=== PATIENT | male | born 1975 | race Caucasian/White ===

== ENCOUNTER 2018-03-08 18:02 | Emergency (ER) | payer OTHER, SELFPAY ==
[2018-03-08 18:03] VITALS: BP 135/83; PULSE 100; RESP 18; TEMP 36.6; O2SAT 99; BMI 28.8
[2018-03-08] MEDS: Diphth,Pertuss(Acell),Tet Vac 0.5 ML Vial IM (18:49)
--- NOTE | 2018-03-08 19:53 | ED.DCSUM_ITS ---
- ER Visit Summary Date of Service: 03/08/18 Chief Complaint: Laceration History of Present Illness: The patient is a 42 M who goes to [facility]. He reports that he suffered a laceration to his right leg while dismantling an above ground pool. He reports his pain is 1 out of 10 severity. He last tetanus shot was more than 10 years ago. Physical Examination: Vitals: Stable. Afebrile. General: Well-nourished and well-developed. Head: Normocephalic atraumatic. Neck: Supple, no lymphadenopathy. No JVD. Nontender. Cardiovascular: Regular rate and rhythm. No murmurs. Respiratory: No respiratory distress. Clear to auscultation bilaterally. Abdominal: Soft, nontender, nondistended, normal bowel sounds. No guarding, rebound, or peritoneal signs. Back: Nontender. Extremities: 6 cm laceration to the anterior surface of his right leg. This does extend to subcutaneous tissue. He is neurovascular intact distal to this. There is no foreign material present.. Skin: Normal color, no rash. Neurologic: Alert and oriented ?3. Cranial nerves II through XII are intact. Normal strength and sensation. Psych: Normal affect. Emergency Department Course and Treatment: Patient refused pain medications. He had his wound repaired. He tolerated it well. His tetanus was updated. Treatment Plan: He will be discharged instructions to follow-up his primary care physician in 10-14 days for suture removal. Return to the emergency department for any worsening symptoms. Disposition: To home in improved and stable condition. Impression: 1. Laceration right leg, 6 cm, repaired Procedure note: Wound was cleansed with chlorhexidine soap. Anesthetized with 1% lidocaine without epinephrine. Copiously irrigated with normal saline. Wound was explored there is no foreign material present. It was closed with 6 simple interrupted 4- 0 ethilon sutures. The patient tolerated it well. This note was generated with [employer] dictation software. It may contain incorrect words, spelling, and punctuation that were not noted in review of the chart prior to signing ED Disposition - Plan for ED Patient: Disposition: Home or Assisted Living Chief Complaint: Laceration Instructions: ED Laceration Ext Sutr Stap Tape Referrals: Doctor,Your [STAFF PHYSICIAN] - 10-14 Days suture removal
[2018-03-08 20:13] VITALS: PULSE 90; RESP 16
== END 2018-03-08 20:14 | disposition home or self-care (01) ==
LOC: ED 19:17
PROVIDERS: Emergency Provider Emergency Medicine
DX: S81.811A Laceration without foreign body, right lower leg, initial encounter (principal); W45.8XXA Other foreign body or object entering through skin, initial encounter; Y93.89 Activity, other specified; Y92.9 Unspecified place or not applicable; Y99.9 Unspecified external cause status; Z23 Encounter for immunization; Z79.899 Other long term (current) drug therapy
CPT/HCPCS: 12002; 90715; 99284

== ENCOUNTER → 2018-04-10 08:08 | Outpatient (CLI) | payer OTHER, SELFPAY ==
[2018-04-10 08:25] LABS: Bacteria 0 SEEN /hpf (None Seen); Squamous Epithelial Cells - UA 0 SEEN /hpf (0-5)
[2018-04-10 08:30] LABS: Color, Urine Yellow (Yellow); Glucose, Dipstick Normal (Normal); Ketone-Dipstick Negative (Negative); Leukocyte Esterase-Dipstick Negative /ul (Negative); Nitrite-Dipstick Negative (Negative); Occult Blood-Urine Negative /ul (Negative); Protein-Dipstick Negative (Negative); Urine Bilirubin Dipstick Negative (Negative); Urine Clarity Clear (Clear); Urine Urobilinogen 1 mg/dl (Normal)
[2018-04-10 08:31] LABS: Absolute Lymphocyte Count 1.69 X10^3/ul (0.83-4.51); Absolute Neutrophil Count 2.4 X10^3/uL (2.0-7.7); Basophil# 0.03 X10^3/uL; Basophil% 0.6 % (0-1); Eosinophil# 0.34 X10^3/uL; Eosinophils% 6.9 % (0-5); Hematocrit 44.7 % (40-54); Hemoglobin 15.2 g/dl (13.0-16.5); Lymphocyte # 1.69 X10^3/ul (4.0); Lymphocyte % 34.4 % (19-41); Mean Corpuscular Hgb 28.6 pg (27.0-32.0); Mean Platelet Vol. 10.2 fl (6.2-12.0); Monocyte# 0.43 X10^3/uL; Monocyte% 8.8 % (0-10); Neutrophil # 2.41 X10^3/uL (2.7-7.7); Neutrophil % 49.1 % (47-70); Platelet Count 245 K/mm3 (150-450); RBC Distribution Width CV 13.3 % (11.6-14.6); RBC Distribution Width SD 41.1 fl (35.1-43.9); Red Blood Count 5.32 M/mm3 (4.6-6.2); White Blood Count 4.9 K/mm3 (4.4-11.0)
[2018-04-10 08:34] LABS: POSITIVE COUNT NO; POSITIVE DIFFERENTIAL NO; POSITIVE MORPHOLOGY NO
[2018-04-10 08:52] LABS: ALB/GLOB Ratio 1.2 RATIO (0.9-2.4); AST(SGOT) 22 U/L (15-37); Alanine Aminotransfer ALT/SGPT 37 U/L (16-61); Albumin, Serum 3.9 g/dL (3.2-5.0); Alkaline Phosphatase 58 U/L (45-117); Anion Gap 8 (5-15); BUN 16 mg/dL (7-18); BUN/Creat Ratio 18.9 RATIO (10-20); Calcium,Total 8.6 mg/dL (8.5-10.1); Chloride 105 mmol/L (98-107); Cholesterol 188 mg/dL (200); Creatinine, Serum 0.85 mg/dL (0.70-1.30); EST Glomerular Filtration Rate 104 mL/min (>60); Est Glom Filt Rate - Afr Amer 126 mL/min (>60); Globulin 3.2 g/dL (2.2-4.2); Glucose 80 mg/dL (74-106); High Density Lipoprotein 41 mg/dL; PSA,Total - Annual Screen 0.48 ng/mL (0.00-4.00); Potassium 3.8 mmol/L (3.5-5.1); Protein, Total 7.1 g/dL (6.4-8.2); Sodium Level 143 mmol/L (136-145); Thyroid Stim Hormone (TSH) 1.21 uIU/mL (0.358-3.74); Triglycerides 122 mg/dL; Very Low Density Lipoprotein 24 mg/dL (5-40)
[2018-04-10 08:53] LABS: Mucous, Urine 3+ /hpf (<or=2+)
[2018-04-10 08:54] LABS: Red Blood Cells-Urine 0-5 SEEN /hpf (0-5); White Blood Cells 0-5 SEEN /hpf (0-5)
[2018-04-10 10:34] LABS: Vitamin D,25 Hydroxy 36.2 ng/mL (29.95-100.01)
== END ==
DX: Z00.00 Encounter for general adult medical examination without abnormal findings (principal); Z12.5 Encounter for screening for malignant neoplasm of prostate; E55.9 Vitamin D deficiency, unspecified; R53.83 Other fatigue
CPT/HCPCS: 36415; 80053; 80061; 81001; 82306; 84153; 84443; 85025; G0103

== ENCOUNTER → 2019-08-11 08:06 | Outpatient (CLI) | payer OTHER, SELFPAY ==
[2019-08-11 08:15] LABS: Absolute Lymphocyte Count 1.86 X10^3/uL (0.83-4.51); Absolute Neutrophil Count 3.3 X10^3/uL (2.0-7.7); Basophil# 0.04 X10^3/uL; Basophil% 0.7 % (0-1); Eosinophil# 0.22 X10^3/uL; Eosinophils% 3.7 % (0-5); Hematocrit 45.9 % (40-54); Hemoglobin 15.5 g/dL (13.0-16.5); Lymphocyte # 1.86 X10^3/ul (4.0); Lymphocyte % 31.3 % (19-41); Mean Corp Hgb Conc 33.8 g/dL (32-36); Mean Corpuscular Hgb 29.1 pg (27.0-32.0); Mean Corpuscular Volume 86.1 fL (80-94); Mean Platelet Vol. 9.6 fl (6.2-12.0); Monocyte# 0.55 X10^3/uL; Monocyte% 9.2 % (0-10); NRBC Flagged by Analyzer 0 % (0-5); Neutrophil # 3.25 X10^3/uL (2.7-7.7); Neutrophil % 54.6 % (47-70); Platelet Count 269 K/mm3 (150-450); RBC Distribution Width CV 12.9 % (11.6-14.6); RBC Distribution Width SD 40.7 fl (35.1-43.9); Red Blood Count 5.33 M/mm3 (4.6-6.2)
[2019-08-11 08:45] LABS: ALB/GLOB Ratio 1.1 RATIO (0.9-2.4); AST(SGOT) 20 U/L (15-37); Alanine Aminotransfer ALT/SGPT 47 U/L (16-61); Albumin, Serum 3.9 g/dL (3.2-5.0); Alkaline Phosphatase 75 U/L (45-117); Anion Gap 5 (5-15); BUN 13 mg/dL (7-18); BUN/Creat Ratio 14.1 RATIO (10-20); Calcium,Total 8.8 mg/dL (8.5-10.1); Chloride 106 mmol/L (98-107); Cholesterol 209 mg/dL (200); Creatinine, Serum 0.92 mg/dL (0.70-1.30); EST Glomerular Filtration Rate 94 mL/min (>60); Est Glom Filt Rate - Afr Amer 114 mL/min (>60); Globulin 3.6 g/dL (2.2-4.2); Glucose 83 mg/dL (74-106); High Density Lipoprotein 40 mg/dL; PSA,Total - Annual Screen 0.44 ng/mL (0.00-4.00); Potassium 3.7 mmol/L (3.5-5.1); Protein, Total 7.5 g/dL (6.4-8.2); Sodium Level 140 mmol/L (136-145); Triglycerides 191 mg/dL; Very Low Density Lipoprotein 38 mg/dL (5-40)
[2019-08-26 07:58] LABS: Color, Urine Yellow (Yellow); Glucose, Dipstick Normal (Normal); Ketone-Dipstick 5 mg/dl (Negative); Leukocyte Esterase-Dipstick 25 /ul (Negative); Nitrite-Dipstick Negative (Negative); Occult Blood-Urine Negative /ul (Negative); Protein-Dipstick Negative (Negative); Urine Bilirubin Dipstick Negative (Negative); Urine Clarity Clear (Clear); Urine Urobilinogen 1 mg/dl (Normal)
[2019-08-26 09:07] LABS: Vitamin D,25 Hydroxy 31.1 ng/mL (29.95-100.01)
== END ==
DX: Z00.00 Encounter for general adult medical examination without abnormal findings (principal)
CPT/HCPCS: 80053; 80061; 81002; 82306; 84153; 85025; G0103

== ENCOUNTER → 2020-12-02 07:00 | Outpatient (CLI) | payer OTHER, SELFPAY ==
[2020-12-04 15:15] LABS: ALB/GLOB Ratio 1.2 RATIO (0.9-2.4); AST(SGOT) 19 U/L (15-37); Alanine Aminotransfer ALT/SGPT 40 U/L (16-61); Albumin, Serum 3.9 g/dL (3.2-5.0); Alkaline Phosphatase 69 U/L (45-117); BUN 22 mg/dL (7-18); BUN/Creat Ratio 23.2 RATIO (10-20); Calcium,Total 8.8 mg/dL (8.5-10.1); Cholesterol 206 mg/dL (200); Creatinine, Serum 0.95 mg/dL (0.70-1.30); EST Glomerular Filtration Rate 90 mL/min (>60); Est Glom Filt Rate - Afr Amer 109 mL/min (>60); Globulin 3.3 g/dL (2.2-4.2); Glucose 78 mg/dL (74-106); Protein, Total 7.2 g/dL (6.4-8.2)
[2020-12-04 15:16] LABS: Anion Gap 5 (5-15); Chloride 107 mmol/L (98-107); High Density Lipoprotein 38 mg/dL; Potassium 3.9 mmol/L (3.5-5.1); Sodium Level 140 mmol/L (136-145); Thyroid Stim Hormone (TSH) 1.49 uIU/mL (0.358-3.74); Triglycerides 116 mg/dL; Very Low Density Lipoprotein 23 mg/dL (5-40)
[2020-12-04 15:17] LABS: Hematocrit 46.1 % (40-54); Hemoglobin 15.7 g/dL (13.0-16.5); Mean Corp Hgb Conc 34.1 g/dL (32-36); Mean Corpuscular Hgb 28.3 pg (27.0-32.0); Mean Corpuscular Volume 83.1 fL (80-94); Mean Platelet Vol. 9.8 fl (6.2-12.0); Platelet Count 286 K/mm3 (150-450); RBC Distribution Width CV 12.6 % (11.6-14.6); RBC Distribution Width SD 38.3 fl (35.1-43.9); Red Blood Count 5.55 M/mm3 (4.6-6.2); White Blood Count 4.6 K/mm3 (4.4-11.0)
[2020-12-04 15:18] LABS: Scan Indicated on CBC? Y/N NO
== END ==
DX: Z00.00 Encounter for general adult medical examination without abnormal findings (principal); E78.00 Pure hypercholesterolemia, unspecified; R53.83 Other fatigue; Z12.5 Encounter for screening for malignant neoplasm of prostate
CPT/HCPCS: 80053; 80061; 84443; 85027

== ENCOUNTER → 2020-12-18 15:08 | Outpatient (CLI) | payer OTHER, SELFPAY ==
[2020-12-18 15:14] LABS: Anion Gap 8 (5-15); BUN 20 mg/dL (7-18); BUN/Creat Ratio 19.4 RATIO (10-20); Calcium,Total 9.1 mg/dL (8.5-10.1); Chloride 105 mmol/L (98-107); Creatinine, Serum 1.03 mg/dL (0.70-1.30); EST Glomerular Filtration Rate 82 mL/min (>60); Est Glom Filt Rate - Afr Amer 100 mL/min (>60); Glucose 77 mg/dL (74-106); PSA,Total - Annual Screen 0.55 ng/mL (0.00-4.00); Sodium Level 141 mmol/L (136-145)
== END ==
DX: Z00.00 Encounter for general adult medical examination without abnormal findings (principal); E78.00 Pure hypercholesterolemia, unspecified; R53.83 Other fatigue; Z12.5 Encounter for screening for malignant neoplasm of prostate
CPT/HCPCS: 36415; 80048; 84153; G0103

== ENCOUNTER → 2020-12-25 | Outpatient (CLI) | payer OTHER, SELFPAY | END | disposition home or self-care (01) | LOC: LABSPEC 11:56 | DX: R79.89 Other specified abnormal findings of blood chemistry (principal) | CPT/HCPCS: 82274 ==

== ENCOUNTER → 2022-02-09 | Outpatient (CLI) | payer OTHER, SELFPAY ==
[2022-02-09 07:29] LABS: Hematocrit 45.6 % (40-54); Hemoglobin 15.8 g/dL (13.0-16.5); Mean Corp Hgb Conc 34.6 g/dL (32-36); Mean Corpuscular Hgb 29.2 pg (27.0-32.0); Mean Corpuscular Volume 84.1 fL (80-94); Mean Platelet Vol. 9.7 fl (6.2-12.0); Platelet Count 277 K/mm3 (150-450); RBC Distribution Width CV 12.7 % (11.6-14.6); RBC Distribution Width SD 38.9 fl (35.1-43.9); Red Blood Count 5.42 M/mm3 (4.6-6.2); White Blood Count 5.2 K/mm3 (4.4-11.0)
[2022-02-09 07:59] LABS: ALB/GLOB Ratio 1.2 RATIO (0.9-2.4); AST(SGOT) 23 U/L (15-37); Alanine Aminotransfer ALT/SGPT 46 U/L (16-61); Albumin, Serum 3.8 g/dL (3.2-5.0); Alkaline Phosphatase 85 U/L (45-117); Anion Gap 3 (5-15); BUN 12 mg/dL (7-18); BUN/Creat Ratio 15.3 RATIO (10-20); Calcium,Total 8.6 mg/dL (8.5-10.1); Chloride 107 mmol/L (98-107); Cholesterol 192 mg/dL (200); Creatinine, Serum 0.78 mg/dL (0.70-1.30); EST Glomerular Filtration Rate 112 mL/min (>60); Est Glom Filt Rate - Afr Amer 135 mL/min (>60); Globulin 3.2 g/dL (2.2-4.2); Glucose 99 mg/dL (74-106); High Density Lipoprotein 30 mg/dL; Potassium 4.1 mmol/L (3.5-5.1); Sodium Level 139 mmol/L (136-145); Thyroid Stim Hormone (TSH) 1.25 uIU/mL (0.358-3.74); Triglycerides 206 mg/dL; Very Low Density Lipoprotein 41 mg/dL (5-40)
== END | disposition home or self-care (01) ==
PROVIDERS: Visit Provider Internal Medicine
DX: Z00.00 Encounter for general adult medical examination without abnormal findings (principal); E78.00 Pure hypercholesterolemia, unspecified; R53.83 Other fatigue; R79.89 Other specified abnormal findings of blood chemistry
CPT/HCPCS: 80053; 80061; 84443; 85027

== ENCOUNTER → 2022-11-05 | Outpatient (CLI) | payer OTHER, SELFPAY ==
[2022-11-05 08:33] LABS: Internal QC Validated? YES +Cl - CLEAR BKGD; Monotest Negative (Negative)
== END | disposition home or self-care (01) ==
LOC: LABSPEC 07:29
DX: R59.1 Generalized enlarged lymph nodes (principal)
CPT/HCPCS: 86308

== ENCOUNTER → 2023-04-16 | Outpatient (CLI) | payer OTHER, SELFPAY ==
[2023-04-16 09:17] LABS: Hematocrit 46.1 % (40-54); Hemoglobin 15.9 g/dL (13.0-16.5); Mean Corp Hgb Conc 34.5 g/dL (32-36); Mean Corpuscular Volume 84.1 fL (80-94); Mean Platelet Vol. 10.3 fl (6.2-12.0); Platelet Count 291 K/mm3 (150-450); RBC Distribution Width CV 13.5 % (11.6-14.6); RBC Distribution Width SD 41.9 fl (35.1-43.9); Red Blood Count 5.48 M/mm3 (4.6-6.2); White Blood Count 5.4 K/mm3 (4.4-11.0)
[2023-04-16 09:37] LABS: Vitamin D,25 Hydroxy 77.3 ng/mL
[2023-04-16 09:44] LABS: ALB/GLOB Ratio 1.4 RATIO (0.9-2.4); AST(SGOT) 38 U/L (15-37); Alanine Aminotransfer ALT/SGPT 49 U/L (16-61); Albumin, Serum 4.4 g/dL (3.2-5.0); Alkaline Phosphatase 83 U/L (45-117); Anion Gap 13 (5-15); BUN 24 mg/dL (7-18); BUN/Creat Ratio 23.1 RATIO (10-20); Calcium,Total 9.6 mg/dL (8.5-10.1); Chloride 103 mmol/L (98-107); Cholesterol 172 mg/dL (200); Creatinine, Serum 1.04 mg/dL (0.70-1.30); EST Glomerular Filtration Rate 81 mL/min (>60); Est Glom Filt Rate - Afr Amer 97 mL/min (>60); Globulin 3.1 g/dL (2.2-4.2); Glucose 76 mg/dL (74-106); High Density Lipoprotein 41 mg/dL; PSA,Total - Annual Screen 0.57 ng/mL (0.00-4.00); Potassium 3.4 mmol/L (3.5-5.1); Protein, Total 7.5 g/dL (6.4-8.2); Sodium Level 143 mmol/L (136-145); Thyroid Stim Hormone (TSH) 1.97 uIU/mL (0.358-3.74); Triglycerides 123 mg/dL; Very Low Density Lipoprotein 25 mg/dL (5-40)
== END | disposition home or self-care (01) ==
LOC: LAB 09:09
DX: Z00.00 Encounter for general adult medical examination without abnormal findings (principal); Z12.5 Encounter for screening for malignant neoplasm of prostate; E78.00 Pure hypercholesterolemia, unspecified; E55.9 Vitamin D deficiency, unspecified; R53.83 Other fatigue
CPT/HCPCS: 36415; 80053; 80061; 82306; 84153; 84443; 85027; G0103

== ENCOUNTER 2023-06-09 08:16 | Day surgery (SDC) | payer OTHER, SELFPAY ==
[2023-06-09] MEDS: Lactated Ringers 1,000 ML 15 ML IV (08:40)
[2023-06-09 08:41] VITALS: BP 120/79; PULSE 68; RESP 18; TEMP 36.4; O2SAT 100; BMI 29.3
--- NOTE | 2023-06-09 09:30 | HP.PCM_ITS ---
HPI - General General Date of Admission: 06/09/23 Date of Service: 06/09/23 Chief Complaint: Screening colonoscopy HPI Narrative EDY EPPS, is a 47 M who presents for screening colonoscopy. Never had a colonoscopy in the past. He does not have any abdominal pain. He has no change in bowel habits. He denies any bleeding per rectum. He denies any nausea vomiting or diarrhea. Overall is in fairly good health. [facility], LAT[facility] Medical History Alcohol use Back pain Gastric reflux Leg cramps Non-smoker Home Medications epinephrine 0.3 mg/0.3 mL injection, auto-injector 1 dose IM X1 PRN BEE STINGS 03/08/18 [History Last Taken Unknown] esomeprazole magnesium 40 mg capsule,delayed release (Nexium) 40 mg PO QHS 03/08/18 [History Last Taken Unknown] fexofenadine 60 mg-pseudoephedrine ER 120 mg tablet,ext.release,12 hr (Yanci-D 12 Hour) 1 ea PO DAILY 03/08/18 [History Last Taken Unknown] fluticasone propionate 50 mcg/actuation nasal spray,suspension 2 spray inhalation DAILY 03/08/18 [History Last Taken 06/09/23] montelukast 10 mg tablet 10 mg PO QHS 03/08/18 [History Last Taken Unknown] Bifidobacterium infantis 10.5 mg (10 million cell) chewable tablet (Align) 10.5 mg PO QHS 06/06/23 [History Last Taken Unknown] multivitamin (Daily Multi-Vitamin tablet) 1 tab PO DAILY 06/06/23 [History Last Taken Unknown] vitamin B complex (B Complex-Vitamin B12 tablet) 1 tab PO DAILY 06/06/23 [History Last Taken Unknown] Allergy/AdvReac Type Severity Reaction Status Date / Time bee venom protein (honey bee) Allergy Swelling Verified 06/06/23 09:23 shrimp Allergy Swelling Verified 06/06/23 09:23 Surgical History (Updated 06/06/23 @ 09:32 by Linda Terrell) History of knee surgery Hx of vasectomy Hx of wisdom tooth extraction Social History (Updated 03/04/23 @ 14:46 by Genet Gomez) household members: spouse current occupational status: employed Smoking Status: Never smoker ROS Review of Systems ROS Unobtainable: other Constitutional Constitutional: Denies fatigue, fever(s), poor appetite, weight gain or weight loss ENT HEENT: Denies mouth lesions Cardiovascular Cardiovascular: Denies abdominal bloating, abdominal edema or abdominal pain Respiratory/Chest Respiratory/Chest: Denies change in mental status, change in phlegm color, chest congestion or chest tightness Gastrointestinal Gastrointestinal: Denies belching, bloating, change in bowel habits, change in stool character, chewing difficulty, coffee ground emesis, constipation, cramping, diarrhea, dyspepsia, dysphagia, early satiety, excessive flatus, fecal incontinence, heartburn, hematemesis, hematochezia, hemorrhoids, loose stools, melena, nausea, odynophagia, rectal bleeding, tenesmus, vomiting or weight changes Genitourinary Genitourinary: Denies abdominal discomfort, burning urination or itching Musculoskeletal Musculoskeletal: Reports as per HPI; Denies muscle weakness or myalgias Integumentary Integumentary: Denies jaundice Neurologic Neurologic: Denies lack of coordination or weakness Psychiatric Psychiatric: Denies confusion, depression, memory loss, mood swings, paranoia or suicidal ideation Endocrine Endocrinology: Denies systems reviewed and no addt'l complaints, except as documented Hematologic/Lymphatic Hematologic/Lymphatic: Denies anemia, easy bleeding, easy bruising or lymphadenopathy Allergic/Immunologic Allergic/Immunologic: Denies systems reviewed and no addt'l complaints, except as documented Vital Signs Vital Signs Vital Signs: 06/09/23 08:41 06/09/23 08:41 Temperature 97.5 F L Temperature Source Temporal Pulse Rate 68 Respiratory Rate 18 Respiratory Pattern Normal Blood Pressure 120/79 Blood Pressure Mean 92 Blood Pressure Source Monitor Blood Pressure Position Semi-Fowlers Blood Pressure Location Right Arm Pulse Ox 100 Oxygen Delivery Method Room Air Weight Weight: 204 lb 12.8 oz Body Mass Index (BMI) 29.3 Physical Exam Const alert General Appearance: cooperative Orientation / Consciousness: oriented to person HEENT hearing grossly normal bilaterally Head and Scalp: normal to inspection Face and Sinus: face symmetric Nose: external nose normal Mouth: oral and palatal mucosa normal Eyes conjunctivae normal General Eye: normal appearance of both eyes Neck full ROM General: normal visual inspection Lymph Lymphatic: no lymphadenopathy noted Chest inspection of chest normal and palpation of chest normal Chest: symmetrical chest wall rise Resp normal respiratory effort Effort and Inspection: able to speak in complete sentences Cardio regular rate GI non-distended Percussion: normal to percussion Rectal Exam: deferred Neuro Speech: speech normal Gait (Neuro): normal gait Assessment & Plan Assessment/Plan (1) Encounter for screening for malignant neoplasm of colon: PLAN: He was explained alternatives, risk, benefits including outstanding bleeding, infection, sepsis, perforation, need for emergent surgery . He will have an ASA of 2.
--- NOTE | 2023-06-09 09:30 | COLBX_PTH ---
PATIENT: EDY EPPS LOC: EN U#:[id number] AGE/SX: 47/M ROOM: RE06/09/[address]: Dr. Samm Boateng DO : 1975 BED: DIS: 06/09/2023 SPEC #: [id number] RECD: 06/09/23 11:21 STATUS: JOHNNY PROManju #: [id number] [place]: 06/09/23 09:[address]: Smam Boateng DEPT: SURGICAL PATHOLOGY RECD BY: Kiet Giraldo Tissues: A - Ascending colon B - POLYP Procedures: Surgery Specimen Level IV HEADER OPERATION: Colonoscopy - open access (MAC), polypectomy PRE-OP DIAGNOSIS: Screening TISSUE SUBMITTED: A - Polyp ascending colon, B - Polyp splenic flexure MICROSCOPIC DIAGNOSIS A. Ascending colon polyp, biopsy: Fragments of hyperplastic polyp. B. Colonic polyp at splenic flexure, biopsy: Tubular adenoma. AM:kassandra 06/10/2023 MICROSCOPIC DESCRIPTION Slides are reviewed. GROSS DESCRIPTION A - Received in fixative is one container labeled with the patient's name and designated polyp ascending colon. The specimen consists of multiple irregular fragments of light mazariegos soft tissue that in aggregate measure 1.0 x 0.5 x 0.1 cm. The specimen is totally submitted in one cassette. B - Received in fixative is one container labeled with the patient's name and designated polyp splenic flexure. The specimen consists of one irregular fragment of light mazariegos soft tissue that measures 0.4 x 0.4 x 0.2 cm. The specimen is totally submitted in one cassette. / SJ:rg 06/09/2023 TC:5 CPT: 16344 x2
[2023-06-09 10:01] VITALS: BP 120/79; BP 125/86; PULSE 68; RESP 16; TEMP 36.7; O2SAT 100
--- NOTE | 2023-06-09 10:04 | OP.COLON_ITS ---
Patient Name: Ethan Gregg Procedure Date: 06/09/2023 9:29 AM Date of : 1975 Age: 47 Procedure: Colonoscopy Indications: Screening for colorectal malignant neoplasm Providers: Samm Boateng DO Referring MD: Samm Boateng DO Medicines: Monitored Anesthesia Care Patient Profile: This is a 47 year old male. Refer to note in patient chart for documentation of history and physical. Last Colonoscopy: none. The patient's first colonoscopy is today. Complications: No immediate complications. Procedure: Pre-Anesthesia Assessment: - Prior to the procedure, a History and Physical was performed, and patient medications and allergies were reviewed. The patient is competent. The risks and benefits of the procedure and the sedation options and risks were discussed with the patient. All questions were answered and informed consent was obtained. Patient identification and proposed procedure were verified by the physician. Mental Status Examination: normal. CV Examination: normal. Prophylactic Antibiotics: The patient does not require prophylactic antibiotics. Prior Anticoagulants: The patient has taken no previous anticoagulant or antiplatelet agents. After reviewing the risks and benefits, the patient was deemed in satisfactory condition to undergo the procedure. The anesthesia plan was to use minimal sedation / analgesia (anxiolysis). Immediately prior to administration of medications, the patient was re-assessed for adequacy to receive sedatives. The heart rate, respiratory rate, oxygen saturations, blood pressure, adequacy of pulmonary ventilation, and response to care were monitored throughout the procedure. The physical status of the patient was re-assessed after the procedure. After I obtained informed consent, the scope was passed under direct vision. Throughout the procedure, the patient's blood pressure, pulse, and oxygen saturations were monitored continuously. The Colonoscope was introduced through the anus and advanced to the cecum, identified by appendiceal orifice and ileocecal valve. The colonoscopy was performed without difficulty. The patient tolerated the procedure well. The quality of the bowel preparation was adequate. Scope In: 9:43:14 AM Scope Withdrawal Time 0 hours 9 minutes 30 seconds Scope Out: 9:56:08 AM Total Procedure Duration Time 0 hours 12 minutes 54 seconds Findings: The perianal and digital rectal examinations were normal. Two sessile polyps were found in the splenic flexure and ascending colon. The polyps were 1 to 2 mm in size. These polyps were removed with a hot snare. Resection and retrieval were complete. Verification of patient identification for the specimen was done. Estimated blood loss was minimal. Internal hemorrhoids were found during retroflexion. The hemorrhoids were Grade II (internal hemorrhoids that prolapse but reduce spontaneously). Impression: - Two 1 to 2 mm polyps at the splenic flexure and in the ascending colon, removed with a hot snare. Resected and retrieved. - Internal hemorrhoids. Recommendation: - Repeat colonoscopy in 5 years for surveillance. - Continue present medications. Procedure Code(s): --- Professional --- 35967, Colonoscopy, flexible; with removal of tumor(s), polyp(s), or other lesion(s) by snare technique CPT copyright 2017 [employer]. All rights reserved. The codes documented in this report are preliminary and upon java consultant review may be revised to meet current compliance requirements. Samm Boateng DO 06/09/2023 10:04:08 AM This report has been signed electronically. Number of Addenda: 0 Note Initiated On: 06/09/2023 9:29 AM
[2023-06-09 10:05] VITALS: BP 118/81; BP 120/79; PULSE 69; RESP 16; O2SAT 100
[2023-06-09 10:10] VITALS: BP 117/81; BP 120/79; PULSE 67; RESP 16; O2SAT 99
[2023-06-09 10:17] VITALS: BP 120/79; BP 128/78; PULSE 58; RESP 16; TEMP 36.6; O2SAT 100
[2023-06-09 10:29] VITALS: BP 120/79
== END 2023-06-09 10:30 | disposition home or self-care (01) ==
LOC: EN 08:17 → AC 08:21
PROVIDERS: Referring Provider Internal Medicine Gastroenterology; Visit Provider Internal Medicine Gastroenterology
PROC: 0DJD8ZZ Inspection of Lower Intestinal Tract, Via Natural or Artificial Opening Endoscopic (ICD-10-PCS; CPT 45378; principal; 2023-06-09 09:25)
DX: Z12.11 Encounter for screening for malignant neoplasm of colon (principal); K64.1 Second degree hemorrhoids; D12.3 Benign neoplasm of transverse colon; K21.9 Gastro-esophageal reflux disease without esophagitis; Z79.899 Other long term (current) drug therapy
CPT/HCPCS: 45385; 88305; J7120; J2405

== ENCOUNTER → 2024-04-21 | Outpatient (CLI) | payer OTHER, SELFPAY ==
[2024-04-21 07:35] LABS: Hematocrit 46.3 % (40-54); Hemoglobin 15.1 g/dL (13.0-16.5); Mean Corp Hgb Conc 32.6 g/dL (32-36); Mean Corpuscular Hgb 28.2 pg (27.0-32.0); Mean Corpuscular Volume 86.4 fL (80-94); Mean Platelet Vol. 9.9 fl (6.2-12.0); Platelet Count 282 K/mm3 (150-450); RBC Distribution Width CV 13.5 % (11.6-14.6); RBC Distribution Width SD 42.5 fl (35.1-43.9); Red Blood Count 5.36 M/mm3 (4.6-6.2); White Blood Count 6.2 K/mm3 (4.4-11.0)
[2024-04-21 08:30] LABS: Vitamin D,25 Hydroxy 36.5 ng/mL
[2024-04-21 10:31] LABS: ALB/GLOB Ratio 1.1 RATIO (0.9-2.4); AST(SGOT) 25 U/L (15-37); Alanine Aminotransfer ALT/SGPT 40 U/L (16-61); Albumin, Serum 3.7 g/dL (3.2-5.0); Alkaline Phosphatase 81 U/L (45-117); Anion Gap 5 (5-15); BUN 18 mg/dL (7-18); BUN/Creat Ratio 21.6 RATIO (10-20); Chloride 107 mmol/L (98-107); Cholesterol 234 mg/dL (200); Creatinine, Serum 0.83 mg/dL (0.70-1.30); EST Glomerular Filtration Rate 104 mL/min (>60); Est Glom Filt Rate - Afr Amer 125 mL/min (>60); Globulin 3.3 g/dL (2.2-4.2); Glucose 92 mg/dL (74-106); High Density Lipoprotein 43 mg/dL; PSA,Total- Diagnostic 0.52 ng/mL (0.0-4.0); Potassium 4.2 mmol/L (3.5-5.1); Sodium Level 140 mmol/L (136-145); Triglycerides 163 mg/dL; Very Low Density Lipoprotein 33 mg/dL (5-40)
[2024-04-23 01:28] LABS: Thyroid Stim Hormone (TSH) 1.48 uIU/mL (0.358-3.74)
== END | disposition home or self-care (01) ==
LOC: LABSPEC 07:22
DX: Z00.00 Encounter for general adult medical examination without abnormal findings (principal)
CPT/HCPCS: 80053; 80061; 82306; 84153; 84443; 85027

== ENCOUNTER → 2025-04-28 | Outpatient (CLI) | payer OTHER, SELFPAY ==
--- OUTSIDE RECORDS SUMMARY | 2025-04-28 07:54 | XMS RPT_ITS | CCD ---
Author Organization [facility] Care Team Providers Care Rehanger Name Role Phone Unavailable Primary Care Provider UnavailPRATIBHA Dockery M.D. Attending Unavailable Care Physician, No Primary Primary Care Provider Unavailable Genet Gomez Attending Provider Unavailable Friend, Dr. Quijano Attending Provider [phone] Friend, Dr. Quijano Referring Provider Friend, Dr. Quijano Other Provider Friend, Samm Consulting Unavailable FriendSamm Attending Unavailable FriendSamm Referring Unavailable Care Physician, No Primary Primary Care Unava ilable FriendSamm Referring Unavailable FriendSamm Attending Unavailable TEJINDER, MEET Attending Unavailable Allergies Allergy Classification Reported Allergen(s) Allergy Type Date of Onset Reaction(s) Facility (2 sources) shrimp allergenic extract Drug Allergy 03-04-2023 [facility] (2 sources) bee venom protein (honey bee) Allergy to substance 03-04-2023 [facility] (1 source) Shrimp product Drug allergy (disorder) 06-06-2023 [facility] (1 source) bee venom protein (honey bee) Drug allergy (disorder) 06-06-2023 [facility] Medications Current Medications Medication Drug Class(es) Dates Sig (Normalized) Sig (Original) bifidobacterium infantis 10.5 mg chewable tablet (1 source) Start: 06-06-2023 Bifidobacterium Infantis (Align) 10.5 mg (10 million cell) tablet,chewable Active 10.5 MG PO AT BEDTIME June 06, 2023 12:00am [id number] 0.3 ml EPINEPHrine 1 mg/ml auto-injector (4 sources) alpha-Adrenergic Agonist, beta-Adrenergic Agonist, Catecholamine Start: 03-08-2018 inject 1 dose by intramuscular injection once Epinephrine Active 1 DOSE IM ONE TIME March 08, 2018 12:00am esomeprazole 40 mg delayed release oral capsule (4 sources) Proton Pump Inhibitor Start: 03-08-2018 take 1 capsule by mouth at bedtime Esomeprazole Magnesium (Nexium) 40 capsule Active 40 MG PO AT BEDTIME March 08, 2018 12:00am fexofenadine hydrochloride 60 mg oral tablet (3 sources) Histamine-1 Receptor Antagonist Start: 03-08-2018 take 1 tablet by mouth at bedtime Fexofenadine (Yanci Allergy) 60 MG tablet Active 60 MG PO AT BEDTIME March 08, 2018 12:00am 12 hr fexofenadine hydrochloride 60 mg / pseudoephedrine hydrochloride 120 mg extended release oral tablet (4 sources) alpha-Adrenergic Agonist, Histamine-1 Receptor Antagonist Start: 03-08-2018 take 1 tablet by mouth every twelve hours Fexofenadine-Pseudo ephedrine (Yanci-D 12 Hour Tablet) 1 EACH tablet extended release 12 hr Active 1 EACH PO DAILY March 08, 2018 12:00am Start: 03-08-2018 Fexofenadine-P seudoephedrine (Yanci-D 12 Hour Tablet) 1 EACH Tab.Er.12h Active 1 EACH PO DAILY March 08, 2018 6:05pm fluticasone propionate 0.05 mg/actuat metered dose nasal spray (4 sources) Corticosteroid Start: 03-08-2018 take 1 spray(s) by inhalation once daily Fluticasone Propionate Active 2 SPRAY INHALATION DAILY March 08, 2018 12:00am montelukast 10 mg oral tablet (4 sources) Leukotriene Receptor Antagonist Start: 03-08-2018 take 10 mg by mouth at bedtime Montelukast Active 10 MG PO AT BEDTIME March 08, 2018 12:00am Multivitamin (Daily Multi-Vitamin) tablet (1 source) Start: 06-06-2023 take 1 tablet by mouth once daily Multivitamin (Daily Multi-Vitamin) tablet Active 1 TABLET PO DAILY June 06, 2023 12:00am Vitamin B Complex (B Complex-Vitamin B12) tablet (1 source) Start: 06-06-2023 take 1 tablet by mouth once daily Vitamin B Complex (B Complex-Vitamin B12) tablet Active 1 TABLET PO DAILY June 06, 2023 12:00am Problems Problem Classification Problem Date Documented Da te Episodic/Chronic Other screening for suspected conditions (not mental disorders or infectious disease) (5 sources) Patient encounter status; Translations: [Encounter for screening for malignant neoplasm of colon] Onset: 07-09-2023 03-04-2023 Episodic Unclassified (1 source) TV RANDOM Onset: 08-15-2022 Results Test Name Value Interpretation Reference Range Facility Thyroid Stim Hormone (TSH)on 04-23-2024 TSH 1.48 uIU/mL Normal 0.358-3.74 [facility] Comment on above: Performed By: #### L506.1000, L100.0500, L500.4050, L501.9940, L500.4100, L501.9520 #### [facility] [address], [place], [id number] CBC-Complete Blood Cnt No Di ffon 04-21-2024 Erythrocyte distribution width (RBC) [Ratio] 13.5 % Normal 11.6-14.6 [facility] Comment on above: Performed By: #### L506.1000, L100.0500, L500.4050, L501.9940, L500.4100, L501.9520 #### [facility] [address], [place], [id number] Hematocrit (Bld) [Volume fraction] 46.3 % Normal 40-54 [facility] Comment on above: Performed By: #### L506.1000, L100.0500, L500.4050, L501.9940, L500.4100, L501.9520 #### [facility] [address], [place], [id number] (020 Hemoglobin (Bld) [Mass/Vol] 15.1 g/dL Normal 13.0-16.5 [facility] Comment on above: Performed By: #### L506.1000, L100.0500, L500.4050, L501.9940, L500.4100, L501.9520 #### [facility] [address] [place], [address] MCH (RBC) [Entitic mass] 28.2 pg Normal 27.0-32.0 [facility] Comment on above: Performed By: #### L506.1000, L100.0500, L500.4050, L501.9940, L500.4100, L501.9520 #### [facility] [address] [place], [address] MCHC (RBC) [Mass/Vol] 32.6 g/dL Normal 32-36 [facility] Comment on above: Performed By: #### L506.1000, L100.0500, L500.4050, L501.9940, L500.4100, L501.9520 #### [facility] [address] [place], [address] MCV (RBC) [Entitic vol] 86.4 fL Normal 80-94 [facility] Comment on above: Performed By: #### L506.1000, L100.0500, L500.4050, L501.9940, L500.4100, L501.9520 #### [facility] [address] [place], [address] Platelet mean volume (Bld) [Entitic vol] 9.9 fL Normal 6.2-12.0 [facility] Comment on above: Performed By: #### L506.1000, L100.0500, L500.4050, L501.9940, L500.4100, L501.9520 #### [facility] [address] [place], [address] Platelets (Bld) [#/Vol] 282 10*3/uL Normal 150-450 [facility] Comment on above: Performed By: #### L506.1000, L100.0500, L500.4050, L501.9940, L500.4100, L501.9520 #### [facility] [address] [place], [address] RBC (Bld) [#/Vol] 5.36 10*6/uL Normal 4.6-6.2 [facility] Comment on above: Performed By: #### L506.1000, L100.0500, L500.4050, L501.9940, L500.4100, L501.9520 #### [facility] [address] [place], [address] RDW SD 42.5 fl Normal 35.1-43.9 [facility] Comment on above: Performed By: #### L506.1000, L100.0500, L500.4050, L501.9940, L500.4100, L501.9520 #### [facility] [address] [place], [address] WBC (Bld) [#/Vol] 6.2 10*3/uL Normal 4.4-11.0 [facility] Comment on above: Performed By: #### L506.1000, L100.0500, L500.4050, L501.9940, L500.4100, L501.9520 #### [facility] [address] [place], [address] [facility] Albumin [Mass/Vol] 3.7 g/dL Normal 3.2-5.0 [facility] Comment on above: Performed By: #### L506.1000, L100.0500, L500.4050, L501.9940, L500.4100, L501.9520 #### [facility] [address] [place], [address] Albumin/Globul in [Mass ratio] 1.1 {ratio} Normal 0.9-2.4 [facility] Comment on above: Performed By: #### L506.1000, L100.0500, L500.4050, L501.9940, L500.4100, L501.9520 #### [facility] [address] [place], [address] ALK P 81 U/L Normal 45-117 [facility] Comment on above: Performed By: #### L506.1000, L100.0500, L500.4050, L501.9940, L500.4100, L501.9520 #### [facility] [address] [place], [address] ALT [Catalytic activity/Vol] 40 U/L Normal 16-61 [facility] Comment on above: Performed By: #### L506.1000, L100.0500, L500.4050, L501.9940, L500.4100, L501.9520 #### [facility] [address] [place], [address] AST [Catalytic activity/Vol] 25 U/L Normal 15-37 [facility] Comment on above: Performed By: #### L506.1000, L100.0500, L500.4050, L501.9940, L500.4100, L501.9520 #### [facility] [address] [place], [address] Bilirubin [Mass/Vol] 0.40 mg/dL Normal 0.20-1.00 [facility] Comment on above: Result Comment: For patients on eltrombo pag therapy, use of Dimension Hamlin TBIL is not recommended. Performed By: #### L 506.1000, L100.0500, L500.4050, L501.9940, L500.4100, L501.9520 #### [facility] [address] [place], [address] BUN/CRE 21.6 RATIO High 10-20 [facility] Comment on above: Performed By: #### L506.1000, L100.0500, L500.4050, L501.9940, L500.4100, L501.9520 #### [facility] [address] [place], [address] CA,Total 9.0 mg/dL Normal 8.5-10.1 [facility] Comment on above: Performed By: #### L506.1000, L100.0500, L500.4050, L501.9940, L500.4100, L501.9520 #### [facility] [address] [place], [address] Chloride [Moles/Vol] 107 mmol/L Normal 98-107 [facility] Comment on above: Performed By: #### L506.1000, L100.0500, L500.4050, L501.9940, L500.4100, L501.9520 #### [facility] [address] [place], [address] CO2 [Moles/Vol] 28.0 mmol/L Normal 21.0-32.0 [facility] Comment on above: Performed By: #### L506.1000, L100.0500, L500.4050, L501.9940, L500.4100, L501.9520 #### [facility] [address] [place], [address] Creatinine [Mass/Vol] 0.83 mg/dL Normal 0.70-1.30 [facility] Comment on above: Result Comment: The validity of the calc ulated GFR GFRAA in patients over 70 years has not been determined. Clinical correlation is essential. Performed By: #### L 506.1000, L100.0500, L500.4050, L501.9940, L500.4100, L501.9520 #### [facility] [address] [place], [address] EST GFR - AA 125 mL/min Normal >60 [facility] Comment on above: Result Comment: GFR Viet c Performed By: #### L 506.1000, L100.0500, L500.4050, L501.9940, L500.4100, L501.9520 #### [facility] [address] [place], [address] GAP 5 Normal 5-15 [facility] Comment on above: Performed By: #### L506.1000, L100.0500, L500.4050, L501.9940, L500.4100, L501.9520 #### [facility] [address] [place], [address] GFR/1.73 sq M.predicted among non-blacks MDRD (S/P/Bld) [Vol rate/Area] 104 mL/min/{1.73_m2} Normal >60 [facility] Comment on above: Result Comment: Non- GFR Calc Performed By: #### L 506.1000, L100.0500, L500.4050, L501.9940, L500.4100, L501.9520 #### [facility] [address] [place], [address] Globulin (S) [Mass/Vol] 3.3 g/dL Normal 2.2-4.2 [facility] Comment on above: Performed By: #### L506.1000, L100.0500, L500.4050, L501.9940, L500.4100, L501.9520 #### [facility] [address] [place], [address] Glucose [Mass/Vol] 92 mg/dL Normal 74-106 [facility] Comment on above: Performed By: #### L506.1000, L100.0500, L500.4050, L501.9940, L500.4100, L501.9520 #### [facility] [address] [place], [address] Potassium [Moles/Vol] 4.2 mmol/L Normal 3.5-5.1 [facility] Comment on above: Performed By: #### L506.1000, L100.0500, L500.4050, L501.9940, L500.4100, L501.9520 #### [facility] [address] [place], [address] Sodium [Moles/Vol] 140 mmol/L Normal 136-145 [facility] Comment on above: Performed By: #### L506.1000, L100.0500, L500.4050, L501.9940, L500.4100, L501.9520 #### [facility] [address] [place], [address] T PROT 7.0 g/dL Normal 6.4-8.2 [facility] Comment on above: Performed By: #### L506.1000, L100.0500, L500.4050, L501.9940, L500.4100, L501.9520 #### [facility] [address] [place], [address] Urea nitrogen [Mass/Vol] 18 mg/dL Normal 7-18 [facility] Comment on above: Performed By: #### L506.1000, L100.0500, L500.4050, L501.9940, L500.4100, L501.9520 #### [facility] [address] [place], [address] Lipid Profileon 04-21-2024 Cholesterol [Mass/Vol] 234 mg/dL High 200 [facility] Comment on above: Result Comment: <200 mg/dL Desirable 200-240 mg/dL Borderline >240 mg/dL High Risk Performed By: #### L 506.1000, L100.0500, L500.4050, L501.9940, L500.4100, L501.9520 #### [facility] [address] [place], [address] Cholesterol in HDL [Mass/Vol] 43 mg/dL Normal [facility] Comment on above: Result Comment: The drugs N-Acetylcystei ne and Metamizole may falsely depress this assay. Reference Range HDL <40 mg/dL Low HDL Cholesterol HDL >or= 60 mg/dL High HDL Cholesterol Performed By: #### L 506.1000, L100.0500, L500.4050, L501.9940, L500.4100, L501.9520 #### [facility] [address] [place], [address] Cholesterol in LDL [Mass/Vol] 158 mg/dL High 0-130 [facility] Comment on above: Performed By: #### L506.1000, L100.0500, L500.4050, L501.9940, L500.4100, L501.9520 #### [facility] [address] [place], [address] Cholesterol in VLDL [Mass/Vol] 33 mg/dL Normal 5-40 [facility] Comment on above: Performed By: #### L506.1000, L100.0500, L500.4050, L501.9940, L500.4100, L501.9520 #### [facility] [address] [place], [address] Triglyceride [Mass/Vol] 163 mg/dL Normal [facility] Comment on above: Result Comment: The drugs N-Acetylcystei ne and Metamizole may falsely depress this assay. Serum Triglycerides Reference Interval Normal <150 mg/dL Borderline high 150 - 199 mg/dL High 200 - 499 mg/dL Very High > or = 500 mg/dL Performed By: #### L 506.1000, L100.0500, L500.4050, L501.9940, L500.4100, L501.9520 #### [facility] [address] [place], [address] PSA,Total- Diagnosticon 06-0 -2023 PSA, DIAGNOSTIC 0.52 ng/mL Normal 0.0-4.0 [facility] Comment on above: Result Comment: This test was performed using the TPSA assay method for the [employer] chemistry system. Values obtained with different assay methods cannot be used interchangably. When changing PSA assays in the course of monitoring a patient, additional sequential testing should be carried out to confirm baseline values. Performed By: #### L 506.1000, L100.0500, L500.4050, L501.9940, L500.4100, L501.9520 #### [facility] [address] [place], [address] Vitamin D,25 Hydroxyon 04-21 Vitamin D 25-OH 36.5 ng/mL Normal [facility] Comment on above: Result Comment: Vitamin D 25(OH) Status Range Deficiency <20 ng/mL (50nmol/L) Insufficiency 20 - 30 ng/mL (50 - 75 nmol/L) Sufficiency 30 - 100 ng/mL (75 - 250 nmol/L) Toxicity >100 ng/mL (>250 nmol/L) Performed By: #### L 506.1000, L100.0500, L500.4050, L501.9940, L500.4100, L501.9520 #### [facility] [address] [place], [place], [address] Colonoscopy Reporton 023 Colonoscopy Report [facility] Medical Records Department [address] [place] [address] Colonoscopy Report MR#: [id number] Acct: [id number] Name: EDY EPPS Rep #: [id number] : 1975 47 From: Samm Boateng DO PCP: Status:[facility] [place] Patient Name: Edy Epps Procedure Date: 06/09/2023 9:29 AM Date of : 1975 Age: 47 Procedure: Colonoscopy Indications: Screening for colorectal malignant neoplasm Providers: Samm Boateng DO Referring MD: Samm Boateng DO Medicines: Monitored Anesthesia Care Patient Profile: This is a 47 year old male. Refer to note in patient chart for documentation of history and physical. Last Colonoscopy: none. The patient's first colonoscopy is today. Complications: No immediate complications. Procedure: Pre-Anesthesia Assessment: - Prior to the procedure, a History and Physical was performed, and patient medications and allergies were reviewed. The patient is competent. The risks and benefits of the procedure and the sedation options and risks were discussed with the patient. All questions were answered and informed consent was obtained. Patient identification and proposed procedure were verified by the physician. Mental Status Examination: normal. CV Examination: normal. Prophylactic Antibiotics: The patient does not require prophylactic antibiotics. Prior Anticoagulants: The patient has taken no previous anticoagulant or antiplatelet agents. After reviewing the risks and benefits, the patient was deemed in satisfactory condition to undergo the procedure. The anesthesia plan was to use minimal sedation / analgesia (anxiolysis). Immediately prior to administration of medications, the patient was re-assessed for adequacy to receive sedatives. The heart rate, respiratory rate, oxygen saturations, blood pressure, adequacy of pulmonary ventilation, and response to care were monitored throughout the procedure. The physical status of the patient was re-assessed after the procedure. After I obtained informed consent, the scope was passed under direct vision. Throughout the procedure, the patient's blood pressure, pulse, and oxygen saturations were monitored continuously. The Colonoscope was introduced through the anus and advanced to the cecum, identified by appendiceal orifice and ileocecal valve. The colonoscopy was performed without difficulty. The patient tolerated the procedure well. The quality of the bowel preparation was adequate. Scope In: 9:43:14 AM Scope Withdrawal Time 0 hours 9 minutes 30 seconds Scope Out: 9:56:08 AM Total Procedure Duration Time 0 hours 12 minutes 54 seconds Findings: The perianal and digital rectal examinations were normal. Two sessile polyps were found in the splenic flexure and ascending colon. The polyps were 1 to 2 mm in size. These polyps were removed with a hot snare. Resection and retrieval were complete. Verification of patient identification for the specimen was done. Estimated blood loss was minimal. Internal hemorrhoids were found during retroflexion. The hemorrhoids were Grade II (internal hemorrhoids that prolapse but reduce spontaneously). Impression: - Two 1 to 2 mm polyps at the splenic flexure and in the ascending colon, removed with a hot snare. Resected and retrieved. - Internal hemorrhoids. Recommendation: - Repeat colonoscopy in 5 years for surveillance. - Continue present medications. Procedure Code(s): --- Professional --- 12872, Colonoscopy, flexible; with removal of tumor(s), polyp(s), or other lesion(s) by snare technique CPT copyright 2017 [employer]. All rights reserved. The codes documented in this report are preliminary and upon hand flatwork finisher review may be revised to meet current compliance requirements. Samm Boateng DO 06/09/2023 10:04:08 AM This report has been signed electronically. Number of Addenda: 0 Note Initiated On: 06/09/2023 9:29 AM 06/09/23 1004 Date Samm Boateng DO Cosigner Signature: Date (if indicated) CC: Samm Boateng DO Date Dictated: 06/09/23928 Date Transcribed: Air Table Operator: LUPILLO Signed Normal [facility] Surgery Specimen Level Dat 06-09-2023 Surgery Specimen Level IV Patient Age/Sex Location Account Attending Physician EDY EPPS 47/M EN [id number] Samm Boateng DO Specimen: [id number] Received: 06/09/23 [id number] Spec Type: COLON BX Subm Dr: Samm Boateng DO HEADER OPERATION: Colonoscopy - open access (MAC), polypectomy PRE-OP DIAGNOSIS: Screening TISSUE SUBMITTED: A - Polyp ascending colon, B - Polyp splenic flexure MICROSCOPIC DIAGNOSIS A. Ascending colon polyp, biopsy: Fragments of hyperplastic polyp. B. Colonic polyp at splenic flexure, biopsy: Tubular adenoma. AM:kassandra 06/10/2023 MICROSCOPIC DESCRIPTION Slides are reviewed. GROSS DESCRIPTION A - Received in fixative is one container labeled with the patient's name and designated polyp ascending colon. The specimen consists of multiple irregular fragments of light mazariegos soft tissue that in aggregate measure 1.0 x 0.5 x 0.1 cm. The specimen is totally submitted in one cassette. B - Received in fixative is one container labeled with the patient's name and designated polyp splenic flexure. The specimen consists of one irregular fragment of light mazariegos soft tissue that measures 0.4 x 0.4 x 0.2 cm. The specimen is totally submitted in one cassette. / SJ:kassandra 06/09/2023 TC:5 [facility]: 58753 x2 Patient Age/Sex Location Account Attending Physician EDY EPPS/M EN [id number] Samm Boateng DO Signed (signature on file) Dr. Derrell Shah, DO 06/10/23 1401 Normal [facility] Comment on above: Performed By: #### PSUIV #### [facility] [address] [place], [address] Basophil percentageon 2022 Bilirubin [Mass/Vol] 0.50 mg/dL 0.20-1.00 [facility] Comment on above: For patients on eltrombopag therapy, use of Dimension [place] TBIL is not recommended. Chloride [Moles/Vol] 103 mmol/L 98-107 [facility] Cholesterol [Mass/Vol] 172 mg/dL <200 [facility] Comment on above: <200 mg/dL Desirable 200-240 mg/dL Borde rline >240 mg/dL High Risk Glucose [Mass/Vol] 76 mg/dL 74-106 [facility] Potassium [Moles/Vol] 3.4 mmol/L 3.5-5.1 [facility] Protein [Mass/Vol] 7.5 g/dL 6.4-8.2 [facility] Sodium [Moles/Vol] 143 mmol/L 136-145 [facility] Triglyceride [Mass/Vol] 123 mg/dL <199 [facility] Comment on above: The drugs N-Acetylcysteine and Metamizol e may falsely depress this assay.Serum Triglycerides Reference Interval Normal <150 mg/dL Borderline high 150 - 199 mg/dL High 200 - 499 mg/dL Very High > or = 500 mg/dL WBC (Bld) [#/Vol] 5.4 10*3/uL 4.4-11.0 [facility] Blood erythrocytes count (nu mber/volume)on 04-16-2023 RBC (Bld) [#/Vol] 5.48 10*6/uL 4.6-6.2 [facility] Blood hemoglobin measurement (mass/volume)on 04-16-2023 Hemoglobin (Bld) [Mass/Vol] 15.9 g/dL 13.0-16.5 [facility] Blood platelet mean volumeon 04-16-2023 Platelet mean volume (Bld) [Entitic vol] 10.3 fL 6.2-12.0 [facility] Determination of erythrocyte mean corpuscular volume (MCV)on 04-16-2023 MCV (RBC) [Entitic vol] 84.1 fL 80-94 [facility] Hematocrit Auto (Bld) [Volum e fraction]on 04-16-2023 Hematocrit (Bld) [Volume fraction] 46.1 % 40-54 [facility] - Chemistry and C hemistry - challengeon 04-16-2023 ALP [Catalytic activity/Vol] 83 U/L 45-117 [facility] ALT [Catalytic activity/Vol] 49 U/L 16-61 [facility] CO2 [Moles/Vol] 27.0 mmol/L 21.0-32.0 [facility] Globulin (S) [Mass/Vol] 3.1 g/dL 2.2-4.2 [facility] Urea nitrogen/Creat inine [Mass ratio] 23.1 mg/mg 10-20 [facility] - Hematology and Cell countson 04-16-2023 Erythrocyte distribution width (RBC) [Entitic vol] 41.9 fL 35.1-43.9 [facility] Erythrocyte distribution width (RBC) [Ratio] 13.5 % 11.6-14.6 [facility] MCH (RBC) [Entitic mass] 29.0 pg 27.0-32.0 [facility] MCHC Auto (RBC) [Mass/Vol]on 04-16-2023 MCHC (RBC) [Mass/Vol] 34.5 g/dL 32-36 [facility] No Panel Informationon 04-16 Estimated GFR (MDRD) Amer 97 mL/min >60 [facility] Comment on above: GFR Calc Estimated GFR (MDRD) Non-Af Amer 81 mL/min >60 [facility] Comment on above: Non- GFR Calc Prostate Specific Antigen Screen 0.57 ng/mL 0.00-4.00 [facility] Comment on above: This test was performed using the TPSA a ssay method for the[facility] chemistry system. Values obtained with differentassay methods cannot be used interchangably.When changing PSA assays in the course of monitoring apatient, additional sequential testing should be carriedout to confirm baseline values. Thyroid Stimulating Hormone (TSH) 1.97 uIU/mL 0.358-3.74 [facility] Vitamin D 25-Hydroxy 77.3 ng/mL [facility] Comment on above: Vitamin D 25(OH) Status Range Deficiency <20 ng/mL (50nmol/L) Insufficiency 20 - 30 ng/mL (50 - 75 nmol/L) Sufficiency 30 - 100 ng/mL (75 - 250 nmol/L) Toxicity >100 ng/mL (>250 nmol/L) Platelets bldon 04-16-2023 Platelets (Bld) [#/Vol] 291 10*3/uL 150-450 [facility] Serum or plasma albumin andrew urement (mass/volume)on 04-16-2023 Albumin [Mass/Vol] 4.4 g/dL 3.2-5.0 [facility] Serum or plasma albumin/glob ulin mass ratioon 04-16-2023 Albumin/Globul in [Mass ratio] 1.4 {ratio} 0.9-2.4 [facility] Serum or plasma calcium andrew urement (mass/volume)on 04-16-2023 Calcium [Mass/Vol] 9.6 mg/dL 8.5-10.1 [facility] Serum or plasma cholesterol in HDL measurement (mass/volume)on 04-16-2023 Cholesterol in HDL [Mass/Vol] 41 mg/dL >40 [facility] Comment on above: The drugs N-Acetylcysteine and Metamizol e may falsely depress this assay. Reference Range HDL <40 mg/dL Low HDL Cholesterol HDL >or= 60 mg/dL High HDL Cholesterol Serum or plasma cholesterol in VLDL measurement (mass/volume)on 04-16-2023 Cholesterol in VLDL [Mass/Vol] 25 mg/dL 5-40 [facility] Serum or plasma creatinine m easurement (mass/volume)on 04-16-2023 Creatinine [Mass/Vol] 1.04 mg/dL 0.70-1.30 [facility] Comment on above: The validity of the calculated GFR & GFR AA in patients over 70 years has not been determined. Clinical correlation is essential. Serum or plasma low density lipoprotein (LDL) cholesterol measurement (mass/volume)on 04-16-2023 Cholesterol in LDL [Mass/Vol] 106 mg/dL 0-130 [facility] Serum or plasma urea nitroge n measurement (mass/volume)on 04-16-2023 Urea nitrogen [Mass/Vol] 24 mg/dL 7-18 [facility] Thin prep Papanicolaou smear with manual screeningon 04-16-2023 Thin prep Papanicolaou smear with manual screening 38 U/L 15-37 [facility] Thin prep Papanicolaou smear with manual screening 13 5-15 [facility] Serum heterophile antibody d etectionon 11-05-2022 Heterophile Ab Ql (S) Negative Negative [facility] Work Phone: Basophil percentageon 2021 Bilirubin [Mass/Vol] 0.40 mg/dL 0.20-1.00 [facility] Work Phone: Comment on above: For patients on eltrombopag therapy, use of Dimension [place] TBIL is not recommended. Chloride [Moles/Vol] 107 mmol/L 98-107 [facility] Work Phone: Cholesterol [Mass/Vol] 192 mg/dL <200 [facility] Work Phone: Comment on above: <200 mg/dL Desirable 200-240 mg/dL Borde rline >240 mg/dL High Risk Glucose [Mass/Vol] 99 mg/dL 74-106 [facility] Work Phone: [phone] Potassium [Moles/Vol] 4.1 mmol/L 3.5-5.1 [facility] Work Phone: Protein [Mass/Vol] 7.0 g/dL 6.4-8.2 [facility] Work Phone: [phone] Sodium [Moles/Vol] 139 mmol/L 136-145 [facility] Work Phone: Triglyceride [Mass/Vol] 206 mg/dL [facility] Work Phone: Comment on above: The drugs N-Acetylcysteine and Metamizol e may falsely depress this assay.Serum Triglycerides Reference Interval Normal <150 mg/dL Borderline high 150 - 199 mg/dL High 200 - 499 mg/dL Very High > or = 500 mg/dL WBC (Bld) [#/Vol] 5.2 10*3/uL 4.4-11.0 [facility] Work Phone: Blood erythrocytes count (nu mber/volume)on 02-09-2022 RBC (Bld) [#/Vol] 5.42 10*6/uL 4.6-6.2 [facility] Work Phone: Blood hemoglobin measurement (mass/volume)on 02-09-2022 Hemoglobin (Bld) [Mass/Vol] 15.8 g/dL 13.0-16.5 [facility] Work Phone: Blood platelet mean volumeon 02-09-2022 Platelet mean volume (Bld) [Entitic vol] 9.7 fL 6.2-12.0 [facility] Work Phone: Determination of erythrocyte mean corpuscular volume (MCV)on 02-09-2022 MCV (RBC) [Entitic vol] 84.1 fL 80-94 [facility] Work Phone: Hematocrit Auto (Bld) [Volum e fraction]on 02-09-2022 Hematocrit (Bld) [Volume fraction] 45.6 % 40-54 [facility] Work Phone: Laboratory - Chemistry and C hemistry - challengeon 02-09-2022 ALP [Catalytic activity/Vol] 85 U/L 45-117 [facility] Work Phone: ALT [Catalytic activity/Vol] 46 U/L 16-61 [facility] Work Phone: CO2 [Moles/Vol] 29.0 mmol/L 21.0-32.0 [facility] Work Phone: Globulin (S) [Mass/Vol] 3.2 g/dL 2.2-4.2 [facility] Work Phone: Urea nitrogen/Creat inine [Mass ratio] 15.3 mg/mg 10-20 [facility] Work Phone: Laboratory - Hematology and Cell countson 02-09-2022 Erythrocyte distribution width (RBC) [Entitic vol] 38.9 fL 35.1-43.9 [facility] Work Phone: Erythrocyte distribution width (RBC) [Ratio] 12.7 % 11.6-14.6 [facility] Work Phone: MCH (RBC) [Entitic mass] 29.2 pg 27.0-32.0 [facility] Work Phone: MCHC Auto (RBC) [Mass/Vol]on 02-09-2022 MCHC (RBC) [Mass/Vol] 34.6 g/dL 32-36 [facility] Work Phone: No Panel Informationon 02-09 Estimated GFR (MDRD) Amer 135 mL/min >60 [facility] Work Phone: Comment on above: GFR Calc Estimated GFR (MDRD) Non-Af Amer 112 mL/min >60 [facility] Work Phone: Comment on above: Non- GFR Calc Thyroid Stimulating Hormone (TSH) 1.25 uIU/mL 0.358-3.74 [facility] Work Phone: Platelets bldon 02-09-2022 Platelets (Bld) [#/Vol] 277 10*3/uL 150-450 [facility] Work Phone: Serum or plasma albumin andrew urement (mass/volume)on 02-09-2022 Albumin [Mass/Vol] 3.8 g/dL 3.2-5.0 [facility] Work Phone: Serum or plasma albumin/glob ulin mass ratioon 02-09-2022 Albumin/Globul in [Mass ratio] 1.2 {ratio} 0.9-2.4 [facility] Work Phone: Serum or plasma calcium andrew urement (mass/volume)on 02-09-2022 Calcium [Mass/Vol] 8.6 mg/dL 8.5-10.1 [facility] Work Phone: Serum or plasma cholesterol in HDL measurement (mass/volume)on 02-09-2022 Cholesterol in HDL [Mass/Vol] 30 mg/dL [facility] Work Phone: Comment on above: The drugs N-Acetylcysteine and Metamizol e may falsely depress this assay. Reference Range HDL <40 mg/dL Low HDL Cholesterol HDL >or= 60 mg/dL High HDL Cholesterol Serum or plasma cholesterol in VLDL measurement (mass/volume)on 02-09-2022 Cholesterol in VLDL [Mass/Vol] 41 mg/dL 5-40 [facility] Work Phone: Serum or plasma creatinine m easurement (mass/volume)on 02-09-2022 Creatinine [Mass/Vol] 0.78 mg/dL 0.70-1.30 [facility] Work Phone: Comment on above: The validity of the calculated GFR & GFR AA in patients over 70 years has not been determined. Clinical correlation is essential. Serum or plasma low density lipoprotein (LDL) cholesterol measurement (mass/volume)on 02-09-2022 Cholesterol in LDL [Mass/Vol] 121 mg/dL 0-130 [facility] Work Phone: Serum or plasma urea nitroge n measurement (mass/volume)on 02-09-2022 Urea nitrogen [Mass/Vol] 12 mg/dL 7-18 [facility] Work Phone: Thin prep Papanicolaou smear with manual screeningon 02-09-2022 Thin prep Papanicolaou smear with manual screening 23 U/L 15-37 [facility] Work Phone: Thin prep Papanicolaou smear with manual screening 3 5-15 [facility] Work Phone: [facility] 09-12-2021 [facility] INFLUENZA AG A negative test is p resumptive and it is recommended these results be confirmed by viral culture or an FDA-cleared influenza A and B molecular assay. Negative results do not preclude influenza virus infections and should not be used as the sole basis for treatment or other patient management decisions. If influenza is circulating in the community, a diagnosis should be based on clinical presentation. RESULTS CALLED TO TYESHA ABERNATHY AT 0844 09/06/21 BY JEFFREY STEPHEN. EIA RESULT PRESUMPTIVE NEGATIVE FOR INFLUENZA A AND B. [facility] Comment on above: Order Comment: [place]: [facility] What is the source? NASOPHARYNGEAL [facility]Con 09-06-2021 [facility] REPORT [facility] DATE OF SERVICE: REASON FOR VISIT: Cough, congestion. HISTORY OF PRESENT ILLNESS: This is a 45-year-old male presenting with symptoms of cough, congestion and drainage that started yesterday. He is concerned of influenza. No shortness of breath. No vomiting or diarrhea. There is no change in taste or smell and he has not been exposed to COVID-19. Review of other systems normal. PAST MEDICAL HISTORY, FAMILY HISTORY, SOCIAL HISTORY: Reviewed. ALLERGIES: BEES and SEASONAL ALLERGY. MEDICATIONS: Reviewed. PHYSICAL EXAMINATION: He is awake, alert not in distress. No dyspnea. Temperature 99.2, blood pressure 136/78, pulse 98, respiration 16, pulse oximetry 100% on room air, pain score 4 out of 10. HEENT: Remarkable for mild nasal congestion. Throat not injected. No paranasal sinus tenderness. Chest: Clear to auscultate. Heart: Regular rate and rhythm. DIAGNOSTICS: Rapid flu test was negative. ASSESSMENT: Upper respiratory infection. [facility] PATIENT NAME: EDY EPPS [facility] [address] Jaquez MEDICAL REC #: [id number] [place] [address] [facility] REPORT STATCARE PHYSICIAN PLAN: Clinical findings were discussed with patient in detail. I gave him Tessalon Perles 100 mg every 6 hours as needed, 30 pills with no refill for cough control. I explained to him that I do not see immediate need of antibiotic right now, but if there is no improvement or if symptoms progress in the next 4 to 5 days I have given prescription of amoxicillin 875 mg twice a day for 10 days prescription to keep. If he gets better he need not to fill. He should drink a lot of fluid, Tylenol as needed and follow with his doctor as needed. Patient understands and agreed. Alicia Morin MD /[id number] [facility] File#: [id number] END OF DOCUMENT / CHANGE LOG FOLLOWS Last Edited By Elec. Signed By Alicia Morin MD #PAWPR Alicia Morin MD #PAWPR on 09/18/2021 08:32 ET on 09/18/2021 08:32 ET Revision Number - 2 [facility] PATIENT NAME: SUPRI[facility]EDY [facility]ige [address] [facility] [address] MEDICAL REC #: [id number] [place] [address] [facility] REPORT STATCARE PHYSICIAN Verified/Reviewed by 09/18/21 0832 [facility] PATIENT NAME: EDY EPPS [address] [facility] [address] Jaquez MEDICAL REC #: [id number] [place] [address] [facility] REPORT STATCARE PHYSICIAN Normal [facility] Radha Gilbert 12-03-2019 PROGRESS HNO ID: [id number] Author: Sb Dennis Provider Service: ? Author Type: Physician Type: Progress Notes Filed: 12/03/2019 4:37 PM Note Text: null (CCF:Not available AMW:[id number]) Visit Summary for Edy Epps - Gender: Male - Date of : 1975 ( ) Date: [id number] - Duration: 6 minutes Patient: Edy Epps Provider: Nitin Arroyo Patient Contact Information Address [address] [place] [address]; [place] [address] [phone] Visit Topics Triage Questions Please provide your current address. We need this on file in case of a medical emergency.Answer [] Conversation Transcripts [Notification] Arianna Zheng, Global Staff, will help you prepare for your visit. She is assisting Nitin Arroyo Family Physician.[Arianna Zheng] Lena, and thank you for connecting. While you are waiting for the doctor, are there any questions I can answer for you about our service? Please contact customer service if you have questions about billing, insurance, or technical issues. Visits work best with a stable WiFi connection, so please make sure you are connected before we begin. [Notification] Arianna Zheng has left the room.[Notification] Arianna Zheng has left the room.[Notification] You are connected with Nitin Arroyo Family Physician.[Notification] Edy Epps is located in [place].[Notification] Edy Epps has shared health history... Diagnosis Viral infection, unspecified Value: B34.9 Code: ICD-10-CM Procedures Value: 36913 Code: CPT-4 OFFICE/OUTPATIENT VISIT EST Medications Prescribed Nexium 24HR Frequency : Yanci-D 12 Hour Frequency : Singulair Frequency : Provider Notes The caller confirms they are the patient on the registration, and that they [place] calling from [place] VideoHPI: Onset yesterday of headache to forehead, congestion. Gassy stomach. No nausea, vomiting or diarrhea. No fever. No body aches or chills. Concerned about influenza. Daughter with possible influenza, seen online. PM: NoneMeds: yanci, nexium, singulair (montelukast)NKDANonsmoker Got a flu shot. On video exam the patient appears in no distress. At work. Does not appear weary of toxic. NO cough. No congestion. Assessment: Viral infection, early and mild. Does not appear to be influenza, and minimal benefit from tamiflu in this case if it were. Plan: Recommend flu test if definativ ediagnosis desired. Discussed the normal course of a viral infection. Manage mucus flow and cough with guaifenesin, humidity and hydration. If fever or body ache occur after day 5, if severe or persisting sinus or ear pain, or if symptoms are lasting more than 12 total days, consider antibiotic.Follow up at any time if worsening or if not improving over 48 hours. Discussed the differential diagnosis, risks/benefits for treatment options and when to seek in person care. All questions were addressed. Patient voiced understanding and agreement with plan. 1. If you received a prescription at this visit and you have a question or problem please call [phone] for prescription assistance2. Please print a copy of this note and send it to your regular doctor, or take it to your next visit so it may be included in your medical record3. Please see your primary care provider on an annual basis or more frequently if directed Electronically signed by: Nitin Arroyo( ) Normal [facility] Vital Signs Date Time Vital Sign Value Performing Clinician Moises ott 06-09-2023 10:040 Body temperature 97.9 [degF] No Primary Care Physician [facility] 06-09-2023 10:040 Diastolic blood pressure 78 mm[Hg] No Primary Care Physician [facility] 06-09-2023 10:040 Heart rate 58 /min No Primary Care Physician [facility] 06-09-2023 10:040 Respiratory rate 16 /min No Primary Care Physician [facility] 06-09-2023 10:17-0400 SaO2% (BldA) [Mass fraction] 100 % No Primary Care Physician [facility] 06-09-2023 10:17-0400 Systolic blood pressure 128 mm[Hg] No Primary Care Physician [facility] 06-09-2023 08:41-0400 Body height 177.8 cm No Primary Care Physician [facility] 06-09-2023 08:41-0400 Body mass index (BMI) [Ratio] 29.3 kg/m2 No Primary Care Physician [facility] 06-09-2023 08:41-0400 Body weight 92.89 kg No Primary Care Physician [facility] 03-04-2023 14:49-0400 Body height 177.8 cm No Primary Care Physician [facility] Encounters Encounter Date Encounter Type Care Provider Facility Start: 04-27-2024 Encounter for genera l adult medical examination without abnormal findings STE2 [facility] Start: 04-21-2024 End: 04-21-2024 ambulatory [facility] Facility:[facility] Start: 06-09-2023 ambulatory Samm Friend Facility :[facility] Start: 06-09-2023 Non-patient / Non-visit No Ginger Pruitt Physician [facility] Start: 06-09-2023 End: 06-09-2023 Admission to same day surgery center No Primary Care Physician [facility] Work Phone: Start: 06-09-2023 End: 06-09-2023 ambulatory No Primary Care Physician [facility] Work Phone: Start: 04-16-2023 End: 04-16-2023 ambulatory No Primary Care Physician [facility] Work Phone: Start: 04-16-2023 End: 04-16-2023 Patient encounter procedure No Primary Care Physician [facility] Work Phone: Start: 03-04-2023 Non-patient / Non-visit No Ginger Pruitt Physician [facility] Work Phone: Start: 11-05-2022 End: 11-05-2022 ambulatory [facility] Work Phone: Start: 11-05-2022 End: 11-05-2022 Patient encounter procedure [facility], Specimen Start: 08-15-2022 ambulatory PRATIBHA PATRICIO Facil ity:[facility] Start: 08-15-2022 End: 08-15-2022 Subsequent hospital visit by physician Provider [facility] Comment on above: TV [facility]ANDOM Start: 02-09-2022 End: 02-09-2022 Patient encounter procedure [facility], Specimen Start: 09-15-2021 Patient encounter procedure Deshawn Still PA-C Work Phone: [facility] Start: 09-15-2021 Progress Note Deshawn Gibson-C Work Phone[facility] Start: 09-09-2021 Patient encounter procedure Alicia Morin MD Work Phone: [facility] Start: 09-09-2021 Progress Note Alicia Morin MD Work Phone: [facility] Procedures Date Procedure Procedure Detail Performing Clinician Start: 06-09-2023 Colonoscopy No Primary Care Physician Plan of Treatment Date Care Activity Detail Author Start: 06-09-2023 Patient discharge [facility] Colonoscopy [facility] Immunizations Immunization Date Immunization Notes Care Provider Zahraa mckeon 03-08-2018 tetanus toxoid, redu antonia diphtheria toxoid, and acellular pertussis vaccine, adsorbed [facility] Payers Date Payer Category Payer Self-pay [id number] 2023 Unknown [id number] Unknown [id number] Unknown [id number] Unknown [id number] Social History Date Type Detail Facility Start: 03-08-2018 End: 06-06-2023 Tobacco smoking status NHIS Unknown if ever smoked [facility] Start: 1975 Sex Assigned At Male [facility] Start: 1975 Sex Assigned At Not on file [facility] Goals Date Patient Goal Desired Activity /State Mental Status Date Assessment Result Facility 06-09-2023 Cognitive function Voice/Name [facility] Work Phone: Procedure note 06-09-2023 Note Date & Type Note Facility 06-09-2023 Procedure note [facility] Clinical Note 06-09-2023 Note Date & Type Note Facility 06-09-2023 Note [facility] Medical Records Department [address] [place] [address] History Physical Exam 06/09/23 0930 MR#: [id number] Acct: [id number] Name: EDY EPPS Rep #: [id number] : 1975 47 From: Samm Friend PCP: Status:[facility] Location: [place] [id number] HPI - General General Date of Admission: 06/09/23 Date of Service: 06/09/23 Chief Complaint: Screening colonoscopy HPI Narrative EDY EPPS, is a 47 M who presents for screening colonoscopy. Never had a colonoscopy in the past. He does not have any abdominal pain. He has no change in bowel habits. He denies any bleeding per rectum. He denies any nausea vomiting or diarrhea. Overall is in fairly good health. [facility] Medical History Alcohol use Back pain Gastric reflux Leg cramps Non-smoker Home Medications epinephrine 0.3 mg/0.3 mL injection, auto-injector 1 dose IM X1 PRN BEE STINGS 03/08/18 [History Last Taken Unknown] esomeprazole magnesium 40 mg capsule,delayed release (Nexium) 40 mg PO QHS 03/08/18 [History Last Taken Unknown] fexofenadine 60 mg-pseudoephedrine ER 120 mg tablet,ext.release,12 hr (Yanci-D 12 Hour) 1 ea PO DAILY 03/08/18 [History Last Taken Unknown] fluticasone propionate 50 mcg/actuation nasal spray,suspension 2 spray inhalation DAILY 03/08/18 [History Last Taken 06/09/23] montelukast 10 mg tablet 10 mg PO QHS 03/08/18 [History Last Taken Unknown] Bifidobacterium infantis 10.5 mg (10 million cell) chewable tablet (Align) 10.5 mg PO QHS 06/06/23 [History Last Taken Unknown] multivitamin (Daily Multi-Vitamin tablet) 1 tab PO DAILY 06/06/23 [History Last Taken Unknown] vitamin B complex (B Complex-Vitamin B12 tablet) 1 tab PO DAILY 06/06/23 [History Last Taken Unknown] Allergy/AdvReac Type Severity Reaction Status Date / Time bee venom protein (honey bee) Allergy Swelling Verified 06/06/23 09:23 shrimp Allergy Swelling Verified 06/06/23 09:23 Surgical History (Updated 06/06/23 @ 09:32 by Linda Terrell) History of knee surgery Hx of vasectomy Hx of wisdom tooth extraction Social History (Updated 03/04/23 @ 14:46 by Genet Gomez) household members: spouse current occupational status: employed Smoking Status: Never smoker ROS Review of Systems ROS Unobtainable: other Constitutional Constitutional: Denies fatigue, fever(s), poor appetite, weight gain or weight loss ENT HEENT: Denies mouth lesions Cardiovascular Cardiovascular: Denies abdominal bloating, abdominal edema or abdominal pain Respiratory/Chest Respiratory/Chest: Denies change in mental status, change in phlegm color, chest congestion or chest tightness Gastrointestinal Gastrointestinal: Denies belching, bloating, change in bowel habits, change in stool character, chewing difficulty, coffee ground emesis, constipation, cramping, diarrhea, dyspepsia, dysphagia, early satiety, excessive flatus, fecal incontinence, heartburn, hematemesis, hematochezia, hemorrhoids, loose stools, melena, nausea, odynophagia, rectal bleeding, tenesmus, vomiting or weight changes Genitourinary Genitourinary: Denies abdominal discomfort, burning urination or itching Musculoskeletal Musculoskeletal: Reports as per HPI; Denies muscle weakness or myalgias Integumentary Integumentary: Denies jaundice Neurologic Neurologic: Denies lack of coordination or weakness Psychiatric Psychiatric: Denies confusion, depression, memory loss, mood swings, paranoia or suicidal ideation Endocrine Endocrinology: Denies systems reviewed and no addt'l complaints, except as documented Hematologic/Lymphatic Hematologic/Lymphatic: Denies anemia, easy bleeding, easy bruising or lymphadenopathy Allergic/Immunologic Allergic/Immunologic: Denies systems reviewed and no addt'l complaints, except as documented Vital Signs Vital Signs Vital Signs: 06/09/23 08:41 06/09/23 08:41 Temperature 97.5 F L Temperature Source Temporal Pulse Rate 68 Respiratory Rate 18 Respiratory Pattern Normal Blood Pressure 120/79 Blood Pressure Mean 92 Blood Pressure Source Monitor Blood Pressure Position Semi-Fowlers Blood Pressure Location Right Arm Pulse Ox 100 Oxygen Delivery Method Room Air Weight Weight: 204 lb 12.8 oz Body Mass Index (BMI) 29.3 Physical Exam Const alert General Appearance: cooperative Orientation / Consciousness: oriented to person HEENT hearing grossly normal bilaterally Head and Scalp: normal to inspection Face and Sinus: face symmetric Nose: external nose normal Mouth: oral and palatal mucosa normal Eyes conjunctivae normal General Eye: normal appearance of both eyes Neck full ROM General: normal visual inspection Lymph Lymphatic: no lymphadenopathy noted Chest inspection of chest normal and palpation of chest normal Chest: symmet (more content not included)... [facility] History of Present illness Narrative 09-15-2021 Deshawn Still PA-C - 09/15/2021 12:22 AM EDT Note Date & Type Note Facility 09-15-2021 History of Present illness Narrative DATE OF SERVICE: 09/12/2021 SUBJECTIVE: A 45-year-old male comes in for evaluation of exacerbation of seasonal allergies. He said it is really bad this time of year. He has all of the pollen to deal with. ALLERGIES, MEDICATIONS, MEDICAL AND SURGICAL HISTORY: Per nursing assessment sheets. PHYSICAL EXAMINATION: Vitals are stable. Pupils are round, reactive. Ears, clear. Oropharynx shows some erythematous streaking. Lungs: Clear. Heart: Heart sounds without prominent rub, murmur, or bruit. Belly is soft. No masses, no guarding. Neurovascularly intact to the upper and lower extremities. Good color to the periphery. Otherwise, stable appearing. IMPRESSION: Seasonal allergies. PLAN: Given a course of Kenalog and discharged. KENTRELL Arvizu/[id number] [facility] File#: [id number] END OF DOCUMENT / CHANGE LOG FOLLOWS Last Edited By Elec. Signed By Deshawn Still #DYJEAN-PAULE Deshawn Still #MITZY on 09/22/2021 09:51 ET on 09/22/2021 09:51 ET Revision Number - 2 ^^^ Verified/Reviewed by 09/22/21950 MITZY [facility] PATIENT NAME: EDY EPPS [address] [facility] [address]z MEDICAL REC #: [id number] [place] [address] [facility] REPORT STATCARE PHYSICIAN documented in this encounter [facility] Clinical Note 09-12-2021 Note Date & Type Note Facility 09-12-2021 Note DATE OF SERVICE: SUBJECTIVE: A 45-year-old male comes in for evaluation of exacerbation of seasonal allergies. He said it is really bad this time of year. He has all of the pollen to deal with. ALLERGIES, MEDICATIONS, MEDICAL AND SURGICAL HISTORY: Per nursing assessment sheets. PHYSICAL EXAMINATION: Vitals are stable. Pupils are round, reactive. Ears, clear. Oropharynx shows some erythematous streaking. Lungs: Clear. Heart: Heart sounds without prominent rub, murmur, or bruit. Belly is soft. No masses, no guarding. Neurovascularly intact to the upper and lower extremities. Good color to the periphery. Otherwise, stable appearing. IMPRESSION: Seasonal allergies. PLAN: Given a course of Kenalog and discharged. KENTRELL Arvizu/[id number] [facility] PATIENT NAME: EDY EPPS Dr. MEDICAL REC #: [id number] [place] [address] [facility] REPORT STATCARE PHYSICIAN [facility]SI File#: [id number] END OF DOCUMENT / CHANGE LOG FOLLOWS Last Edited By [employer]. Signed By Deshawn Still #DYKLE Deshawn Still #DYKLE on 09/22/2021 09:51 ET on 09/22/2021 09:51 ET Revision Number - 2 Verified/Reviewed by 09/22/21 0951 [facility] PATIENT NAME: EDY EPPS Paige Jaquez MEDICAL REC #: [id number] [place] [address] [facility] REPORT [facility] PHYSICIAN [facility] [place] History of Present illness Narrative 09-09-2021 Alicia Morin MD - 09/09/2021 12:29 PM EDT Note Date & Type Note Facility 09-09-2021 History of Present illness Narrative DATE OF SERVICE: 09/06/2021 REASON FOR VISIT: Cough, congestion. HISTORY OF PRESENT ILLNESS: This is a 45-year-old male presenting with symptoms of cough, congestion and drainage that started yesterday. He is concerned of influenza. No shortness of breath. No vomiting or diarrhea. There is no change in taste or smell and he has not been exposed to COVID-19. Review of other systems normal. PAST MEDICAL HISTORY, FAMILY HISTORY, SOCIAL HISTORY: Reviewed. ALLERGIES: BEES and SEASONAL ALLERGY. MEDICATIONS: Reviewed. PHYSICAL EXAMINATION: He is awake, alert not in distress. No dyspnea. Temperature 99.2, blood pressure 136/78, pulse 98, respiration 16, pulse oximetry 100% on room air, pain score 4 out of 10. HEENT: Remarkable for mild nasal congestion. Throat not injected. No paranasal sinus tenderness. Chest: Clear to auscultate. Heart: Regular rate and rhythm. DIAGNOSTICS: Rapid flu test was negative. ASSESSMENT: Upper respiratory infection. PLAN: Clinical findings were discussed with patient in detail. I gave him Tessalon Perles 100 mg every 6 hours as needed, 30 pills with no refill for cough control. I explained to him that I do not see immediate need of antibiotic right now, but if there is no improvement or if symptoms progress in the next 4 to 5 days I have given prescription of amoxicillin 875 mg twice a day for 10 days prescription to keep. If he gets better he need not to fill. He should drink a lot of fluid, Tylenol as needed and follow with his doctor as needed. Patient understands and agreed. Alicia Morin MD [id number] SSI File#: [id number] END OF DOCUMENT / CHANGE LOG FOLLOWS Last Edited By Aj. Signed By Alicia Morin MD #PAWPR Alicia Morin MD #[email or web address] on 09/18/2021 08:32 ET on 09/18/2021 08:32 ET Revision Number - 2 ^^^ Verified/Reviewed by 09/18/21831 [facility] PATIENT NAME: EDY EPPS [address] Jaquez MEDICAL REC #: [id number] [place] [address] [facility] REPORT [facility] PHYSICIAN documented in this encounter [facility] Evaluation note Note Date & Type Note Facility Evaluation note No assessment information availa ble [facility] Work Phone: Evaluation note Note Date & Type Note Facility Evaluation note Diagnosis Onset Date Encounter for screening for malignant neoplasm of colon acute [facility] Work Phone: History and physical note Note Date & Type Note Facility History and physical note Note Date/Time June 09, 2023 9:31am [facility] Medical Records Department [address] [place] [address] History & Physical Exam 06/09/23929 MR#: [id number] Acct: [id number] Name: EDY EPPS Rep #:[id number] : 1975 47 From: Samm Friend PCP: Status:[facility] Location: [place] [address] HPI - General General Date of Admission: 06/09/23 Date of Service: 06/09/23 Chief Complaint: Screening colonoscopy HPI Narrative EDY EPPS, is a 47 M who presents for screening colonoscopy. Never had a colonoscopy in the past. He does not have any abdominal pain. He has no changein bowel habits. He denies any bleeding per rectum. He denies any nausea vomiting or diarrhea. Overall is in fairly good health. [facility] Medical History Alcohol use Back pain Gastric reflux Leg cramps Non-smoker Home Medications epinephrine 0.3 mg/0.3 mL injection, auto-injector 1 dose IM X1 PRN BEE STINGS 03/08/18 [History Last Taken Unknown] esomeprazole magnesium 40 mg capsule,delayed release (Nexium) 40 mg PO QHS 03/08/18 [History Last Taken Unknown] fexofenadine 60 mg-pseudoephedrine ER 120 mg tablet,ext.release,12 hr (Yanci-D12 Hour) 1 ea PO DAILY 03/08/18 [History Last Taken Unknown] fluticasone propionate 50 mcg/actuation nasal spray,suspension 2 spray inhalation DAILY 03/08/18 [History Last Taken 06/09/23] montelukast 10 mg tablet 10 mg PO QHS 03/08/18 [History Last Taken Unknown] Bifidobacterium infantis 10.5 mg (10 million cell) chewable tablet (Align) 10.5 mg PO QHS 06/06/23 [History Last Taken Unknown] multivitamin (Daily Multi-Vitamin tablet) 1 tab PO DAILY 06/06/23 [History Last Taken Unknown] vitamin B complex (B Complex-Vitamin B12 tablet) 1 tab PO DAILY 06/06/23 [History Last Taken Unknown] Allergy/AdvReac Type Severity Reaction Status Date / Time bee venom protein (honey bee) Allergy Swelling Verified 06/06/23 09:23 shrimp Allergy Swelling Verified 06/06/23 09:23 Surgical History (Updated 06/06/23 @ 09:32 by Linda Terrell) History of knee surgery Hx of vasectomy Hx of wisdom tooth extraction Social History (Updated 03/04/23 @ 14:46 by Genet Gomez) household members: spouse current occupational status: employed Smoking Status: Never smoker ROS Review of Systems ROS Unobtainable: other Constitutional Constitutional: Denies fatigue, fever(s), poor appetite, weight gain or weight loss ENT HEENT: Denies mouth lesions Cardiovascular Cardiovascular: Denies abdominal bloating, abdominal edema or abdominal pain Respiratory/Chest Respiratory/Chest: Denies change in mental status, change in phlegm color, chestcongestion or chest tightness Gastrointestinal Gastrointestinal: Denies belching, bloating, change in bowel habits, change in stool character, chewing difficulty, coffee ground emesis, constipation, cramping, diarrhea, dyspepsia, dysphagia, early satiety, excessive flatus, fecalincontinence, heartburn, hematemesis, hematochezia, hemorrhoids, loose stools, melena, nausea, odynophagia, rectal bleeding, tenesmus, vomiting or weight changes Genitourinary Genitourinary: Denies abdominal discomfort, burning urination or itching Musculoskeletal Musculoskeletal: Reports as per HPI; Denies muscle weakness or myalgias Integumentary Integumentary: Denies jaundice Neurologic Neurologic: Denies lack of coordination or weakness Psychiatric Psychiatric: Denies confusion, depression, memory loss, mood swings, paranoia orsuicidal ideation Endocrine Endocrinology: Denies systems reviewed and no addt'l complaints, except as documented Hematologic/Lymphatic Hematologic/Lymphatic: Denies anemia, easy bleeding, easy bruising or lymphadenopathy Allergic/Immunologic Allergic/Immunologic: Denies systems reviewed and no addt'l complaints, except as documented Vital Signs Vital Signs Vital Signs: 06/09/23 08:41 06/09/23 08:41 Temperature 97.5 F L Temperature Source Temporal Pulse Rate 68 Respiratory Rate 18 Respiratory Pattern Normal Blood Pressure 120/79 Blood Pressure Mean 92 Blood Pressure Source Monitor Blood Pressure Position Semi-Fowlers Blood Pressure Location Right Arm Pulse Ox 100 Oxygen Delivery Method Room Air Weight Weight: 204 lb 12.8 oz Body Mass Index (BMI) 29.3 Physical Exam Const alert General Appearance: cooperative Orientation / Consciousness: oriented to person HEENT hearing grossly normal bilaterally Head and Scalp: normal to inspection Face and Sinus: face symmetric Nose: external nose normal Mouth: oral and palatal mucosa normal Eyes conjunctivae normal General Eye: normal appearance of both eyes Neck full ROM General: normal visual inspection Lymph Lymphatic: no lymphadenopathy noted Chest inspection of chest normal and palpation of chest normal Chest: symmetrical chest wall rise Resp normal respiratory effort Effort and Inspection: able to speak in complete sentences Cardio regular rate GI non-distended Percussion: normal to percussion Rectal Exam: deferred Neuro Speech: speech normal Gait (Neuro): normal gait Assessment & Plan Assessment/Plan (1) Encounter for screening for malignant neoplasm of colon: PLAN: He was explained alternatives, risk, benefits including outstanding bleeding, infection, sepsis, perforation, need for emergent surgery . He will have an ASA of 2. 07/24/23 0931 <Electronically signed by Samm Boateng DO> Cosigner Signature (if applicable): CC: Samm Boateng DO~ Signed [facility] Work Phone: Summary Purpose Family History No Family History Records FoundNo Family History Records FoundNo Family History Records FoundNo Family History Records FoundNo Family History Records Found Advance Directives No Advanced Directives Records Found Advance Directive Response Recorded Date/ Time Living Will No March 08, 2018 6:08pm Power of Dry Finisher No March 08 6:08pm Advance Directive Response Recorded Date/ Time Living Will No March 08, 2018 5:08pm Power of Dry Finisher No March 08 5:08pm Advance Directive Response Recorded Date/ Time Living Will No June 06, 2023 9:27am Power of Dry Finisher No June 06 9:27am Chief Complaint and Reason for Visit Chief Complaint Amb Documentation Chief Complaint Amb Documentation Reason for Visit Encounter for screen ing for malignant neoplasm of colon Additional Source Comments (unrecognized sect ion and content) No Status Records FoundNo Status Records FoundNo Status Records FoundNo Status Records FoundNo Status Records Found INFORMATION SOURCE (unrecogn ized section and content) DATE CREATED AUTHOR 12/03/2019 [facility] DATE CREATED AUTHOR AUTHOR'S ORGANIZ ATION 12/06/2019 [facility] DATE CREATED AUTHOR AUTHOR'S ORGANIZ ATION 12/30/2021 [facility] DATE CREATED AUTHOR AUTHOR'S ORGANIZ ATION 08/22/2022 [facility] DATE CREATED AUTHOR AUTHOR'S ORGANIZ ATION 04/27/2024 [facility] Goals (unrecognized section and content) Goals may be documented in a n alternate sectionGoals may be documented in an alternate sectionGoals may be documented in an alternate section Source Comments (unrecognize d section and content) In the event this informatio n is protected by the Federal Confidentiality of Alcohol and Drug Abuse Patient Records regulations: The Federal rules restrict any use of the information to criminally investigate or prosecute any alcohol or drug abuse patient.[facility] FoundationIn the event this information is protected by the Federal Confidentiality of Alcohol and Drug Abuse Patient Records regulations: The Federal rules restrict any use of the information to criminally investigate or prosecute any alcohol or drug abuse patient.[facility] FoundationIn the event this information is protected by the Federal Confidentiality of Alcohol and Drug Abuse Patient Records regulations: The Federal rules restrict any use of the information to criminally investigate or prosecute any alcohol or drug abuse patient.[facility] Care Teams (unrecognized sec tion and content) Team Status: Active Member Role Status Dates No Primary Care Physician Family Provider Active Team Status: Active Member Role Status Dates No Primary Care Physician Primary Care Provider Active Genet Gomez Attending Provider Active Team Status: Inactive Member Role Status Dates ION KULKARNI Attending Provider Active Team Status: Active Member Role Status Dates Dr. Samm Boateng DO Attending Provid er, Referring Provider, Other Provider Active Team Status: Inactive Member Role Status Dates Dr. Samm Boateng DO Attending Provider, Referring Provider Active ION KULKARNI Active FOR RECORDS PERTAINING TO PATIENTS WHO ARE OR HAVE BEEN ENROLLED IN A CHEMICAL DEPENDENCY/SUBSTANCEABUSE PROGRAM, SOME INFORMATION MAY BE OMITTED. This clinical summary was aggregated from multiple sources. Caution should be exercised in using it in the provision of clinical care. This summary normalizes information from multiple sources, and as a consequence, information in this document may materially change the coding, format and clinical context of patient data. In addition, data may be omitted in some cases. CLINICAL DECISIONS SHOULD BE BASED ON THE PRIMARY CLINICAL RECORDS. [facility] [employer] [facility]. provides no warranty or guarantee of the accuracy or completeness of information in this document.
[2025-04-28 07:57] LABS: Hematocrit 44.7 % (40-54); Hemoglobin 15.1 g/dL (13.0-16.5); Mean Corp Hgb Conc 33.8 g/dL (32-36); Mean Corpuscular Volume 85.8 fL (80-94); Mean Platelet Vol. 9.8 fl (6.2-12.0); Platelet Count 282 K/mm3 (150-450); RBC Distribution Width CV 13.5 % (11.6-14.6); RBC Distribution Width SD 42.2 fl (35.1-43.9); Red Blood Count 5.21 M/mm3 (4.6-6.2); White Blood Count 5.8 K/mm3 (4.4-11.0)
[2025-04-28 08:24] LABS: ALB/GLOB Ratio 1.7 RATIO (0.9-2.4); AST(SGOT) 31 U/L (<=37); Alanine Aminotransfer ALT/SGPT 35 U/L (<=46); Albumin, Serum 4.3 g/dL (3.5-5.0); Alkaline Phosphatase 75 U/L (40-129); Anion Gap 14 (5-15); BUN 12 mg/dL (4-19); BUN/Creat Ratio 13.5 RATIO (10-20); Calcium,Total 9.2 mg/dL (7.6-11.0); Carbon Dioxide 23.3 mmol/L (21.0-32.0); Chloride 100 mmol/L (98-108); Cholesterol 241 mg/dL (<=200); Creatinine, Serum 0.85 mg/dL (0.70-1.20); EST Glomerular Filtration Rate 105 (>60); Globulin 2.5 g/dL (2.2-4.2); Glucose 90 mg/dL (70-99); High Density Lipoprotein 40 mg/dL; Low Density Lipoprotein Calc. 161 mg/dL; PSA,Total - Annual Screen 0.42 ng/mL (0.02-4.00); Potassium 3.8 mmol/L (3.3-5.1); Protein, Total 6.8 g/dL (5.9-8.4); Sodium Level 138 mmol/L (133-145); Total Bilirubin 0.36 mg/dL (0.00-1.30); Triglycerides 199 mg/dL; Very Low Density Lipoprotein 40 mg/dL (5-40)
== END | disposition home or self-care (01) ==
LOC: LAB.FUTURE 07:35 → LABSPEC 04-30 07:26
DX: Z00.00 Encounter for general adult medical examination without abnormal findings (principal)
CPT/HCPCS: 80053; 80061; 84153; 84443; 85027; G0103

== ENCOUNTER → 2025-04-30 | Outpatient (CLI) | payer OTHER, SELFPAY ==
[2025-04-30 07:40] LABS: Color, Urine Yellow (Yellow); Glucose, Dipstick Normal (Normal); Ketone-Dipstick Negative (Negative); Leukocyte Esterase-Dipstick Negative /ul (Negative); Nitrite-Dipstick Negative (Negative); Occult Blood-Urine Negative /ul (Negative); Protein-Dipstick Negative (Negative); Urine Bilirubin Dipstick Negative (Negative); Urine Clarity Clear (Clear); Urine Urobilinogen Normal (Normal)
--- OUTSIDE RECORDS SUMMARY | 2025-04-30 07:49 | XMS RPT_ITS | CCD ---
Author Organization [facility] Care Team Providers Care Metal Expediter Name Role Phone Unavailable Primary Care Provider UnavailPRATIBHA Dockery M.D. Attending Unavailable Care Physician, No Primary Primary Care Provider Unavailable Genet Gomez Attending Provider Unavailable Friend, Dr. Quijano Attending Provider Friend, Dr. Quijano Referring Provider [phone] Friend, Dr. Quijano Other Provider [phone] [facility] Doctor, Out of Attending Unavailable Allergies Allergy Classification Reported Allergen(s) Allergy Type Date of Onset Reaction(s) Facility (2 sources) shrimp allergenic extract Drug Allergy 03-04-2023 [facility] (2 sources) bee venom protein (honey bee) Allergy to substance 03-04-2023 [facility] (1 source) Shrimp product Drug allergy (disorder) 06-06-2023 [facility] (1 source) bee venom protein (honey bee) Drug allergy (disorder) 06-06-2023 [facility] Medications Current Medications Medication Drug Class(es) Dates Sig (Normalized) Sig (Original) bifidobacterium infantis 10.5 mg chewable tablet (1 source) Start: 06-06-2023 Bifidobacterium Infantis (Align) 10.5 mg (10 million cell) tablet,chewable Active 10.5 MG PO AT BEDTIME June 06, 2023 12:00am [id number] 0.3 ml EPINEPHrine 1 mg/ml auto-injector (4 [...] PO DAILY June 06, 2023 12:00am Problems Active Problems Problem Classification Problem Date Documented Da te Episodic/Chronic Other screening for suspected conditions (not mental disorders or infectious disease) (3 sources) Patient encounter status; Translations: [Encounter for screening for malignant neoplasm of colon] 03-04-2023 Episodic Past or Other Problems Problem Classification Problem Date Documented Da te Episodic/Chronic Unclassified (1 source) TV RANDOM Onset: 08-15-2022 Results Test Name Value Interpretation Reference Range Facility CBC-Complete Blood Cnt No Di ffon 04-28-2025 Erythrocyte distribution width (RBC) [Ratio] 13.5 % Normal 11.6-14.6 [facility] Comment on above: Performed By: #### L501.9910, L500.4100, L500.4050, L100.0500, L501.9520 #### [facility] [address] [place], [address] Hematocrit (Bld) [Volume fraction] 44.7 % Normal 40-54 [facility] Comment on above: Performed By: #### L501.9910, L500.4100, L500.4050, L100.0500, L501.9520 #### [facility] [address] [place], [address] Hemoglobin (Bld) [Mass/Vol] 15.1 g/dL Normal 13.0-16.5 [facility] Comment on above: Performed By: #### L501.9910, L500.4100, L500.4050, L100.0500, L501.9520 #### [facility] [address] [place], [address] MCH (RBC) [Entitic mass] 29.0 pg Normal 27.0-32.0 [facility] Comment on above: Performed By: #### L501.9910, L500.4100, L500.4050, L100.0500, L501.9520 #### [facility] [address] [place], [address] MCHC (RBC) [Mass/Vol] 33.8 g/dL Normal 32-36 [facility] Comment on above: Performed By: #### L501.9910, L500.4100, L500.4050, L100.0500, L501.9520 #### [facility] [address] [place], [address] MCV (RBC) [Entitic vol] 85.8 fL Normal 80-94 [facility] Comment on above: Performed By: #### L501.9910, L500.4100, L500.4050, L100.0500, L501.9520 #### [facility] [address] [place], [address] Platelet mean volume (Bld) [Entitic vol] 9.8 fL Normal 6.2-12.0 [facility] Comment on above: Performed By: #### L501.9910, L500.4100, L500.4050, L100.0500, L501.9520 #### [facility] [address] [place], [address] Platelets (Bld) [#/Vol] 282 10*3/uL Normal 150-450 [facility] Comment on above: Performed By: #### L501.9910, L500.4100, L500.4050, L100.0500, L501.9520 #### [facility] [address] [place], [address] RBC (Bld) [#/Vol] 5.21 10*6/uL Normal 4.6-6.2 [facility] Comment on above: Performed By: #### L501.9910, L500.4100, L500.4050, L100.0500, L501.9520 #### [facility] [address] [place], [address] RDW SD 42.2 fl Normal 35.1-43.9 [facility] Comment on above: Performed By: #### L501.9910, L500.4100, L500.4050, L100.0500, L501.9520 #### [facility] [address] [place], [address] WBC (Bld) [#/Vol] 5.8 10*3/uL Normal 4.4-11.0 [facility] Comment on above: Performed By: #### L501.9910, L500.4100, L500.4050, L100.0500, L501.9520 #### [facility] [address] [place], [address] Comprehensive Metabolic Prof wvon 04-28-2025 Albumin [Mass/Vol] 4.3 g/dL Normal 3.5-5.0 [facility] Comment on above: Performed By: #### L501.9910, L500.4100, L500.4050, L100.0500, L501.9520 #### [facility] [address] [place], [address] Albumin/Globul in [Mass ratio] 1.7 {ratio} Normal 0.9-2.4 [facility] Comment on above: Performed By: #### L501.9910, L500.4100, L500.4050, L100.0500, L501.9520 #### [facility] [address] [place], [address] ALK PHOS 75 U/L Normal 40-129 [facility] Comment on above: Performed By: #### L501.9910, L500.4100, L500.4050, L100.0500, L501.9520 #### [facility] [address] [place], [address] ALT [Catalytic activity/Vol] 35 U/L Normal <=46 [place]
== END | disposition home or self-care (01) ==
DX: Z00.00 Encounter for general adult medical examination without abnormal findings (principal)
CPT/HCPCS: 81002